=== PATIENT | female | born 1950 | race Caucasian/White ===

== ENCOUNTER → 2020-01-17 13:10 | Outpatient (CLI) | payer MEDICARE, SELFPAY ==
--- NOTE | ~2020-01-17 | DEXA_ITS ---
Bone Density Report Name: Desiree Hanna Age: 69 Sex: Female Ethnicity: White Date of : 1950 Indication: postmenopausal; screening for osteoporosis; hysterectomy; Referring Provider: Lin Carlos Study: Bone densitometry was performed. Exam Date: January 17, 2020 Accession number: [id number] Bone Density: Region BMD T-score Z-score Classification AP Spine (L1-L4) 0.908 -1.3 0.7 Osteopenia Femoral Neck (Left) 0.764 -0.8 0.9 Normal Total Hip (Left) 0.809 -1.1 0.3 Osteopenia Femoral Neck (Right) 0.795 -0.5 1.2 Normal Total Hip (Right) 0.879 -0.5 0.9 Normal Total Hip Mean 0.844 -0.8 0.6 Normal World Health Organization criteria for BMD impression classify patients as: Normal (T-score at or above -1.0), Osteopenia (T-score between -1.0 and -2.5), or Osteoporosis (T-score at or below -2.5). 10-year Fracture Risk(1): Major Osteoporotic Fracture 8.1% Hip Fracture 0.6% Reported Risk Factors: [place] (), Neck BMD=0.764, BMI=28.5 (1) FRAX(R) Version 3.08. Fracture probability calculated for an untreated patient. Fracture probability may be lower if the patient has received treatment. Previous Exams: Region Exam Age BMD T-score BMD Change BMD Change Date g/cm2 vs Baseline vs Previous AP Spine(L1-L4) 01/17/2020 69 0.908 -1.3 -0.075* -0.075* 07/20/2005 54 0.983 -0.6 Total Hip(Left) 01/17/2020 69 0.809 -1.1 -0.187* -0.187* 07/20/2005 54 0.997 0.4 Total Hip(Right) 01/17/2020 69 0.879 -0.5 -0.089* -0.089* 07/20/2005 54 0.968 0.2 *Denotes significance at 95% confidence level, LSC for AP Spine = 0.022 g/cm2, LSC for Total Hip = 0.027 g/cm2 Clinical Information Provided by Patient: Has used the following medications: Vitamin D, Calcium, LEVOTHYROXIN Has the following medical conditions: Hysterectomy Patient maximum height was 62.5 Menopause Age: 44 No regular weight bearing exercise Does not regularly consume dairy products Drinks caffeinated beverages Onset of menses at age 15 Number of children 2 Impression: The patient has low bone mass, based on the Total Spine T-score. The patient has an estimated ten-year risk of hip fracture of 0.6% and an estimated ten-year risk of major fracture of 8.1%, based on the WHO FRAX algorithm. The BMD for the AP Spine(L1-L4) decreased, changing by -0.075 since the last DXA exam. The BMD for the Total Hip(Left) decreased,
--- NOTE | ~2020-01-17 | MM_ITS ---
EXAMINATION: MM screening [facility] BI w [place] HISTORY: Screening mammogram TECHNIQUE: Craniocaudal and mediolateral oblique 3-D tomosynthesis images were obtained and synthetic 2-D images were generated. CAD analysis was submitted and interpreted. COMPARISON: 12/08/2017, 10/16/2011, 08/17/2008 BREAST PARENCHYMAL COMPOSITION: There are scattered areas of fibroglandular density. FINDINGS: There is no evidence of suspicious mass, calcification, or architectural distortion to sugg est malignancy in either breast. There has been no suspicious interval change. IMPRESSION: 1. No mammographic evidence of malignancy. 2. Recommend routine screening mammography in one year. BI-RADS Category 1: Negative Reviewed, dictated and finalized at location A. TRIMMER
== END ==
PROVIDERS: PCP Family Medicine; Visit Provider Nurse Practitioner
DX: Z12.31 Encounter for screening mammogram for malignant neoplasm of breast (principal); Z78.0 Asymptomatic menopausal state; M85.88 Other specified disorders of bone density and structure, other site; M85.852 Other specified disorders of bone density and structure, left thigh
CPT/HCPCS: 77063; 77067; 77080

== ENCOUNTER → 2021-12-10 11:33 | Outpatient (CLI) | payer MEDICARE, SELFPAY ==
--- NOTE | ~2021-12-10 | MM_ITS ---
EXAMINATION: MM screening [facility] BI w [place] HISTORY: Screening mammogram TECHNIQUE: Craniocaudal and mediolateral oblique 3-D tomosynthesis images were obtained and synthetic 2-D images were generated. CAD analysis was submitted and interpreted. COMPARISON: 01/17/2020, 12/08/2017, 10/16/2011 BREAST PARENCHYMAL COMPOSITION: The breasts are heterogeneously dense, which may obscure small masses . FINDINGS: No suspicious mass, calcification, or architectural distortion are identified in either sabino ast to suggest malignancy. There has been no suspicious interval change. IMPRESSION: 1. No mammographic evidence of malignancy. 2. Recommend routine screening mammography in one year. BI-RADS Category 1: Negative Reviewed, dictated and finalized at location B.
== END ==
PROVIDERS: PCP Family Medicine; Visit Provider Family Medicine
DX: Z12.31 Encounter for screening mammogram for malignant neoplasm of breast (principal)
CPT/HCPCS: 77063; 77067

== ENCOUNTER → 2021-12-30 14:07 | Outpatient (CLI) | payer MEDICARE, SELFPAY ==
--- NOTE | ~2021-12-30 | XR_ITS ---
XR chest 2V 12/30/2021 14:23 Indication: Fever and cough Procedure: 2 view chest Comparison: 10/12/2011 Findings: Heart size normal. There is subsegmental atelectasis of the left mid and lower lung. Cannot exclude developing pneumonia. No pleural effusion or pneumothorax. Right lung clear. Impression: 1: Linear infiltrates of the left mid and lower lung, most likely atelectasis. Developing pneumonia n ot excluded. Reviewed, dictated and finalized at location B. Impression: 1: Linear infiltrates of the left mid and lower lung, most likely atelectasis. Developing pneumonia not excluded.
== END ==
PROVIDERS: PCP Family Medicine; Visit Provider Nurse Practitioner
DX: R05.9 Cough, unspecified (principal); R50.9 Fever, unspecified; R91.8 Other nonspecific abnormal finding of lung field
CPT/HCPCS: 71046

== ENCOUNTER 2022-01-14 12:41 | Inpatient (IN) | payer MEDICARE, SELFPAY ==
--- NOTE | ~2022-01-14 | CT_ITS ---
EXAMINATION: CT chest abdomen pelvis w con DATE: 01/14/2022 14:42 INDICATION: Cough. Right lower quadrant abdominal pain. Fever. TECHNIQUE: Computed tomography (CT) of the chest, abdomen, and pelvis was performed with 100 mL Omnip aque 350 intravenous contrast. Automated exposure control and iterative reconstruction technique were employed. The dose-length product was 806.67 mGy-cm. COMPARISON: Chest 2 views 12/30/2021 FINDINGS: CHEST CT: The lungs demonstrate mild atelectasis. No pleural effusion. The heart size is normal. No pericardial effusion. There is a small sliding hiatal hernia. There is mild thoracic spondylosis. There is a chr onic compression fracture of T8. ABDOMEN/PELVIS CT: The liver, gallbladder, spleen, pancreas, adrenal glands, and kidneys are normal. There are scattered diverticula in the colon. There is wall thickening of the sigmoid colon with surrounding fat strandi ng and 3.5 x 2.8 x 2.7 cm perisigmoid abscess. There are no dilated loops of bowel. The appendix is n ot visualized. There is a small volume of pelvic ascites. There are no pathologically enlarged lymph nodes. There is mild lumbar spondylosis. IMPRESSION: 1. Acute sigmoid diverticulitis with perisigmoid abscess. Consider CT-guided drainage. 2. Small volume of pelvic ascites. Reviewed, dictated and finalized at location A. ER PUNCH IMPRESSION: 1. Acute sigmoid diverticulitis with perisigmoid abscess. Consider CT-guided dr chau. 2. Small volume of pelvic ascites.
--- NOTE | ~2022-01-14 | CT_ITS ---
EXAMINATION: CT guide absc cath placement DATE: 01/15/2022 13:45 INDICATION: Perisigmoid abscess. TECHNIQUE: The procedure including the risks, benefits, and alternatives was discussed with the patie nt. Risks discussed included bleeding and infection. The patient understood the risks and benefits an d agreed to proceed. The patient was confirmed to be receiving appropriate antibiotic coverage. The skin overlying the abdomen was prepped and draped in usual sterile fashion. Anesthetic was administe red with 1% lidocaine subcutaneously. Moderate sedation was achieved with 1 mg Versed IV and 100 mcg fentanyl IV. An 18 gauge trochar needle was inserted into the perisigmoid abscess with CT guidance. T he needle was exchanged over a wire for 6 Portuguese, 8 Portuguese, and 9 Portuguese dilators and then for an 8.5 Portuguese pigtail catheter. The catheter was stitched to the skin, and a sterile dressing was applied. The mA was adjusted according to patient size. Iterative reconstruction technique was employed. The d ose-length product was 260.82 mGy-cm. There were no immediate complications. FINDINGS: CT images demonstrate the catheter within the perisigmoid abscess. 4 mL fluid was aspirated for testing. IMPRESSION: 1. Successful CT-guided perisigmoid abscess drainage. 2. 4 mL opaque, red-gann fluid was sent for aerobic and anaerobic cultures. Reviewed, dictated and finalized at location A. RACT ASSOCIATE
[2022-01-14 12:45] VITALS: BP 97/84; PULSE 115; RESP 20; TEMP 38.7; O2SAT 96
[2022-01-14 13:02] VITALS: BP 128/78; PULSE 112; RESP 19; O2SAT 96
[2022-01-14 13:44] LABS: Basophils Absolute Auto 0.1 K/mm3 (0.0-0.1); Basophils Percent Auto 0.3 % (0.2-1.2); Eosinophils Percent Auto 0.2 % (0-4.4); Hematocrit 37.4 % (37.0-47.0); Hemoglobin 12.6 g/dL (12.0-15.0); Immature Granulocyte Absolute 0.11 K/mm3 (0.00-0.031); Immature Granulocyte Percent A 0.6 % (0-0.5); Lymphocytes Absolute Auto 1.28 K/mm3 (0.9-3.2); Lymphocytes Percent Auto 7.3 % (18.3-44.2); Mean Corpuscular HGB Conc 33.7 g/dl (32-36); Mean Corpuscular Hemoglobin 29.5 pg (26-34); Mean Corpuscular Volume 87.6 fl (80-100); Monocytes Absolute Auto 1.8 K/mm3 (0.1-0.6); Neutrophils Absolute Auto 14.3 K/mm3 (1.3-6.7); Neutrophils Percent Auto 81.6 % (45.5-73.1); Platelet Count Result 450 k/mm3 (150-375); Red Blood Count 4.27 M/mm3 (4.2-5.4); White Blood Count 17.5 K/mm3 (4.5-10.0)
[2022-01-14] MEDS: SODIUM CHLORIDE 0.9% IV 1,000 ML 999 ML IV CONT (13:51)
[2022-01-14 13:57] LABS: Appearance Urine Clear (Clear); Bilirubin Urine Negative (Negative); Blood Urine Negative (Negative); Color Urine Dark Yellow (Yellow); Glucose Urine UA Negative (Negative); Ketones Urine 1+ mg/dL (Negative); Leukocyte Esterase Ur Negative LEU/UL (Negative); Nitrate Urine Negative (Negative); Protein Urine Negative (Negative); Urobilinogen Urine 0.2 mg/dL (<2.0)
[2022-01-14 14:00] VITALS: PULSE 98; RESP 17; O2SAT 94
[2022-01-14 14:02] LABS: Alanine Aminotransferase 26 U/L (6-35); Alkaline Phosphatase 95 U/L (38-126); Anion Gap 10 mmol/L (8-16); Aspartate Amino Transferase 27 U/L (14-36); Bilirubin,Total 0.7 mg/dL (0.2-1.3); Blood Urea Nitrogen 14 mg/dL (7-17); Calcium 8.8 mg/dL (8.4-10.2); Carbon Dioxide 25 mmol/L (22-30); Chloride 99 mmol/L (98-107); Estimated CRCL calculation 49 ml/min; Estimated Glomerular Filt Rate > 60; Glucose 121 mg/dL (65-110); Lipase 34 U/L (23-300); Potassium 3.7 mmol/L (3.4-5.0); Sodium 134 mmol/L (137-145)
[2022-01-14 14:04] LABS: Squamous Epithelial Cell Urine Occasional /hpf (Few); WBC Urine 0-3 /hpf
[2022-01-14 14:18] LABS: Add Urine Microscopic? YES
--- NOTE | 2022-01-14 14:54 | ED.FEVER ---
HPI - Fever General Chief Complaint: Fever Stated Complaint: FEVER/RECENT PNEUMONIA Time Seen by Provider: 01/14/22 13:10 History of Present Illness HPI Narrative: Patient is a 71-year-old female who presents ER with persistent fever. On 12/20/2021 she was diagnosed with influenza. After a week to 10 days she continued have fevers. Her doctor felt she might have a pneumonia given a borderline chest x-ray. She was started on Augmentin however fevers and cough persisted so she was started on Levaquin. Fever still persist today so she was told to go to the ER for CT of her chest. Patient is also reporting that she has developed some lower abdominal pain for the last couple of days. No diarrhea. No nausea or vomiting. No urinary frequency urgency or dysuria. Pain is worse with palpation and movement. Related Data Home Medications Medication Instructions Recorded Confirmed cholecalciferol (vitamin D3) 25 25 mcg PO DAILY 11/13/19 12/28/21 mcg (1,000 unit) capsule ferrous sulfate 325 mg (65 mg 325 mg PO DAILY 11/13/19 12/28/21 iron) tablet calcium carbonate 600 mg calcium 600 mg PO TID 09/28/21 12/28/21 (1,500 mg) tablet (Calcium) coenzyme Q10 50 mg capsule (Co 50 mg PO DAILY 09/28/21 12/28/21 Q-10) niacin 50 mg tablet 50 mg PO DAILY 09/28/21 12/28/21 vitamin B complex 1 tablet PO DAILY 09/28/21 12/28/21 Allergies Allergy/AdvReac Type Severity Reaction Status Date / Time erythromycin base Allergy Unknown Vomiting Verified 01/14/22 13:03 Review of Systems Review of Systems: All systems reviewed & are unremarkable except as noted in HPI and below Constitutional: Constitutional: Denies chills, Reports fatigue and Reports fever(s) ENT: Denies nasal congestion and Denies sore throat Cardiovascular: Cardiovascular: Denies chest pain, Denies rapid heart rate and Denies radiating jaw, neck or arm pain Respiratory: Respiratory: Reports cough, Denies dyspnea and Denies wheezing Gastrointestinal: Gastrointestinal: Reports abdominal pain, Denies nausea and Denies vomiting Neurologic: Denies headache(s), Denies focal weakness and Denies numbness PMFSH Past Medical History Medical History Dyslipidemia Hypothyroidism Melanoma (~1993) left leg calf Nose fracture Numerous skin moles Osteomyelitis (~1965) Osteopenia Surgical History Surgical History H/O abdominoplasty (~2011) History of carpal tunnel surgery (~1995) Right History of hysterectomy (~1994) History of melanoma excision (~1995) Right lower extremity Hx of section (~1981) Family History Family History Sibling Patient's brother is in good health Mother Family history of arthritis Family history of glaucoma Father Family history of amyotrophic lateral sclerosis, Onset Age: 86 Patient's father is Family history of dementia Other Diabetes mellitus Family history of malignant neoplasm of bone Family history of throat cancer Hypertension Social History Social History Smoking status: Never smoker Second hand tobacco smoke exposure: No Alcohol intake: current Alcohol use details: consumes 4oz of wine rarely Substance use: never Substance use type: does not use Additional living arrangements comments: and mother Gender identity (if verbalized by the patient): Female Sexual Orientation (if Verbalized by the Patient): Straight or Heterosexual Spiritual care concerns: No Exam Narrative: GENERAL: Well-appearing, well-nourished, and in no acute distress. HEAD: Normocephalic, atraumatic. EYES: PERRL and EOMI. ENT: Mucous membranes moist. CHEST: Clear to auscultation. No respiratory distress. HEART: Regular rate and rhythm. Normal peripheral pulses. ABDOMEN: Soft, b
--- NOTE | 2022-01-14 15:39 | PM.IMHP ---
H&P: HPI History of Present Illness Date/Time: 01/14/22 15:39 Chief Complaint: Fever Narrative: This is a 71-year-old woman with a history of hyperlipidemia and hypothyroidism, who presented to the emergency department with complaints of a fever. She tested positive for influenza B in mid December. She felt she was not ?getting over it? and was getting worse, therefore she followed up with her PCP. He ordered a chest x-ray on 12/30/2021 that showed linear infiltrates of the left mid and lower lung. She was started on Augmentin. After 6 days, she was reportedly switched to Levaquin as she was not having much improvement. She recently finished Levaquin last Tuesday. She was then afebrile for the past 3 days. Last night, she reports having a temperature of a 100.3? F. Due to her fever, she called her PCP this morning who directed her to the ER for evaluation. In the ER with further questioning after having abdominal tenderness on exam, she did endorse having lower abdominal pain that has been ongoing for the past month. She reports the pain has been mild and is aggravated by coughing or movement. This pain has remained consistent and did not seem to worsen recently. She initially felt it was related to constipation and was taking Colace. Her bowels began moving again normally and her pain remain the same. She reports having a continuous low-grade fever since testing positive for influenza up until 3 days ago. Due to the tenderness, she had a CT scan of the chest, abdomen, and pelvis in the ER. This showed acute sigmoid diverticulitis with perisigmoid abscess and small volume of pelvic ascites. [place] [id number] and lactic acid is pending. The ED physician called our service for the acute diverticulitis with perisigmoid abscess. She is now seen in the ER. She denies any pain at this time, and reports that currently her pain is only with movement and coughing. She does feel tender in the lower abdomen. She denies any history of diverticulitis. She reportedly had a normal colonoscopy about 10 years ago and was scheduled to have a colonoscopy next month. Previous abdominal surgeries include a total abdominal hysterectomy, delivery, and abdominoplasty. She does endorse that she still has a cough, but no shortness of breath. She is not hypoxic in the ER and is on room air. Overall, she actually feels her abdominal pain and symptoms have improved in the last 24 hours, other than the fever. COVID and influenza testing are pending. Review of Systems Review of Systems: All systems reviewed & are unremarkable except as noted in HPI and below Constitutional: Constitutional: Reports no additional constitutional complaints, Reports fever(s), Denies headache(s) and Denies poor appetite Eyes: Eyes: Reports no additional eye complaints ENT: Reports system reviewed and no additional complaints, except as documented Cardiovascular: Cardiovascular: Reports no additional cardiovascular complaints and Denies chest pain Respiratory: Respiratory: Reports as per HPI and Reports no additional respiratory complaints Gastrointestinal: Gastrointestinal: Reports as per HPI, Reports no additional gastrointestinal complaints, Denies melena, Denies hematochezia, Reports constipation, Denies diarrhea, Denies nausea and Denies vomiting Genitourinary: Genitourinary: Reports no additional female genitourinary complaints and Denies dysuria Musculoskeletal: Musculoskeletal: Reports no additional musculoskeletal complaints Integumentary/Breasts: Skin/Breast: Reports system reviewed and no additional complaints, except as docu Neurologic: Reports system reviewed and no additional complaints, except as documented [facility] Past Medical History Medical History Dyslipidemia Hypothyroidism Melanoma (~1993) left leg calf Nose fracture Numerous skin moles Osteomyelitis (~1
[2022-01-14 15:52] LABS: Lactic Acid Reflex 0.6 mmol/L (0.7-2.0)
[2022-01-14 16:07] LABS: INR 1.1; Prothrombin Time 14.2 Seconds (11.1-14.7)
[2022-01-14 16:08] LABS: Partial Thromboplastin Time 33.2 SECONDS (22.3-36.8)
[2022-01-14 16:19] VITALS: BP 136/72; PULSE 85; RESP 17; TEMP 37.1; O2SAT 96
[2022-01-14 16:49] LABS: Influenza A QL RT-PCR Negative (Negative); Influenza B QL RT-PCR Negative (Negative); SARS-CoV-2 RNA PCR Negative
[2022-01-14] MEDS: SODIUM CHLORIDE 0.9% IV 1,000 ML 125 ML IV CONT (17:29)
--- NOTE | 2022-01-14 18:50 | ADMGEN ---
This patient, Desiree Hanna, was admitted to Medical Room 342-01. Patient/family oriented to hospital policies and general routines including ID bracelet, bed and alarms, visiting hours, pain management, procedures, bathroom and other care routines, personal items, smoking policy, room service/diet, and visiting hours. Information on how to activate the Rapid Response Team has been discussed. Patient/Family are encouraged to report perceived risks to care and to ask questions if they do not understand what they are told or what they should do.
--- NOTE | 2022-01-14 20:11 | PC.NURSE ---
CARE PLAN, ADMISSION, ASSESSMENT AND MEDICATION RECONCILIATION DONE AT THIS TIME.
[2022-01-14 20:38] VITALS: BP 138/71; PULSE 89; RESP 18; TEMP 36.9; O2SAT 100; BMI 34.0
--- NOTE | 2022-01-14 21:24 | PC.NURSE ---
PATIENT STATES THAT SHE TAKES SEVERAL OTC MEDICATIONS(I.E. VITAMIN/SUPPLEMENTS). WHILE INQUIRING ABOUT THEM, SHE INFORMED ME THAT SHE WAS OKAY NOT RECEIVING THOSE MEDICATIONS DURING HOSPITALIZATION.
[2022-01-14] MEDS: guaiFENesin/CODEINE (*CRX) 200/20 MG 10 ML SYRUP 5 ML PO (21:51)
[2022-01-15] VITALS (12 sets, daily range): BP systolic 110–129; BP diastolic 56–77; PULSE 76–103; RESP 15–20; TEMP 36.8–37; O2SAT 92–98
[2022-01-15] MEDS: MORPHINE SULFATE (*CRX) 4 MG/ML INJ IV PUSH ×3 (00:16→11:22)
[2022-01-15] MEDS: SODIUM CHLORIDE 0.9% IV 1,000 ML 125 ML IV CONT ×2 (02:11→11:20)
[2022-01-15 06:06] LABS: Anion Gap 10 mmol/L (8-16); Blood Urea Nitrogen 9 mg/dL (7-17); Calcium 7.8 mg/dL (8.4-10.2); Carbon Dioxide 24 mmol/L (22-30); Chloride 102 mmol/L (98-107); Estimated CRCL calculation 51 ml/min; Estimated Glomerular Filt Rate > 60; Glucose 111 mg/dL (65-110); Potassium 3.3 mmol/L (3.4-5.0); Sodium 136 mmol/L (137-145)
[2022-01-15 06:18] LABS: Basophils Percent Auto 0.2 % (0.2-1.2); Eosinophils Percent Auto 0.1 % (0-4.4); Hematocrit 31.1 % (37.0-47.0); Hemoglobin 10.5 g/dL (12.0-15.0); Immature Granulocyte Absolute 0.09 K/mm3 (0.00-0.031); Immature Granulocyte Percent A 0.5 % (0-0.5); Lymphocytes Percent Auto 5.9 % (18.3-44.2); Mean Corpuscular HGB Conc 33.8 g/dl (32-36); Mean Corpuscular Hemoglobin 29.6 pg (26-34); Mean Corpuscular Volume 87.6 fl (80-100); Mean Platelet Volume 9.2 fl (7.4-10.4); Monocytes Absolute Auto 1.3 K/mm3 (0.1-0.6); Monocytes Percent Auto 7.8 % (2.6-8.5); Neutrophils Absolute Auto 14.6 K/mm3 (1.3-6.7); Neutrophils Percent Auto 85.5 % (45.5-73.1); Platelet Count Result 346 k/mm3 (150-375); Red Blood Count 3.55 M/mm3 (4.2-5.4); White Blood Count 17.1 K/mm3 (4.5-10.0)
[2022-01-15] MEDS: LEVOTHYROXINE SODIUM 88 MCG TABLET PO (06:53)
[2022-01-15] MEDS: PANTOPRAZOLE 40 MG TABLET PO (08:55)
[2022-01-15] MEDS: guaiFENesin/CODEINE (*CRX) 200/20 MG 10 ML SYRUP 5 ML PO (09:04)
--- NOTE | 2022-01-15 11:33 | PM.PNGS ---
Progress Note: A&P Assessment and Plan (1) Diverticulitis of intestine with abscess: Code(s): K57.80 - Diverticulitis of intestine, part unspecified, with perforation and abscess without bleeding Status: Acute Assessment and Plan: cont IV abx, plan for perc drainage today (2) Sepsis: Code(s): A41.9 - Sepsis, unspecified organism Status: Acute Assessment and Plan: see above Subjective Subjective Date/Time Seen: 01/15/22 11:33 feels ok, still c LLQ pain Review of Systems Review of Systems: All systems reviewed & are unremarkable except as noted in HPI and below Exam Const: General: cooperative, acute distress mild, tired appearing, uncomfortable and obese Resp: Auscultation: clear to auscultation bilaterally Cardio: Rate: regular rate Rhythm: regular rhythm GI: Inspection: normal to inspection and distended GI Palp: Yes abdominal tenderness, Yes Soft to palpation, Yes Tenderness to palpation present (GI), No Guarding due to palpation present (GI) and No Rigid due to palpation Objective Data Vital Signs Vital Signs: Vital Signs - 24 hr 01/14/22 12:45 01/14/22 13:02 01/14/22 14:00 Temperature 38.7 C H Pulse Rate 115 H 112 H 98 Respiratory Rate 20 19 17 Blood Pressure 97/84 L 128/78 Pulse Oximetry 96 96 94 Oxygen Delivery 01/14/22 16:19 01/14/22 20:38 01/14/22 21:30 Temperature 37.1 C 36.9 C Pulse Rate 85 89 Respiratory Rate 17 18 Blood Pressure 136/72 138/71 Pulse Oximetry 96 100 Oxygen Delivery Room Air 01/15/22 04:03 01/15/22 08:30 Temperature 36.8 C Pulse Rate 103 H Respiratory Rate 18 Blood Pressure 117/56 L Pulse Oximetry 92 Oxygen Delivery Room Air Intake/Output Intake/Output: Intake & Output 01/12/22 01/13/22 01/14/22 01/15/22 23:59 23:59 23:59 23:59 Intake Total 1200 2100 Output Total 700 Balance 1200 1400 Meds/Results Medications: Active Medications Generic Name Dose Route Start Last Admin Trade Name Freq PRN Reason Stop Dose Admin Benzocaine 1 lozenge 01/15/22 11:12 Benzocaine/Menthol (*Bkc) 18 Ea Lozenge PO PRN PRN Sore Throat Diphenhydramine HCl 25 mg 01/15/22 11:11 Diphenhydramine Hcl Cap 25 Mg Capsule PO Q6H PRN Itching Guaifenesin/Codeine Phosphate 5 ml 01/14/22 21:17 01/15/22 09:04 Guaifenesin/Codeine (*Crx) 200/20 Mg 10 Ml Syrup PO 5 ml Q6H PRN Administration cough Piperacillin/Tazobactam/Dextrose 3.375 gm in 50 mls @ 100 mls/hr 01/14/22 21:00 01/15/22 09:25 Zosyn 3.375 Gm/D5w 50ml Pm IVPB Infused Q6H MILLA Infusion Acetaminophen 1,000 mg in 100 mls @ 400 mls/hr 01/14/22 15:08 Ofirmev 1,000 Mg Ivpb IVPB 01/15/22 15:07 Q6H PRN Mild Pain (1-3) or Fever Sodium Chloride 1,000 mls @ 125 mls/hr 01/14/22 15:10 01/15/22 11:20 Normal Saline Iv IV CONT 125 mls/hr .Q8H MILLA Administration Levothyroxine Sodium 88 mcg 01/15/22 06:30 01/15/22 06:53 Levothyroxine Sodium 88 Mcg Tablet PO 88 mcg DAILY@0630 MILLA Administration Morphine Sulfate 4 mg 01/14/22 15:08 01/15/22 11:22 Morphine Sulfate (*Crx) 4 Mg/Ml Inj IV PUSH 4 mg Q2H PRN Administration Pain Rated 7-10 Ondansetron HCl 4 mg 01/14/22 15:08 Ondansetron Inj 4 Mg/2 Ml Vial IV PUSH Q4H PRN Nausea Pantoprazole Sodium 40 mg 01/15/22 09:00 01/15/22 08:55 Pantoprazole 40 Mg Tablet PO 02/14/22 08:59 40 mg DAILY MILLA Administration Radiology Results: ITS Impressions Chest/Abdomen/Pelvis CT 01/14/22 14:43 IMPRESSION: 1. Acute sigmoid diverticulitis with perisigmoid abscess. Consider CT-guided drainage. 2. Small volume of pelvic ascites. Labs Labs: Laboratory Results - last 24 hr 11/10/22 11/10/22 11/10/22 13:37 13:38 13:38 WBC 17.5 H RBC 4.27 Hgb 12.6 Hct 37.4 MCV 87.6 MCH 29.5 MCHC 33.7 RDW 13.0 Plt Count 450 H MPV 9.0 Immature Gran % (Auto) 0.6 H
[2022-01-15] MEDS: diphenhydrAMINE HCl CAP 25 MG CAPSULE PO (12:18)
[2022-01-15] MEDS: BENZOCAINE/MENTHOL (*BKC) 18 EA LOZENGE 1 LOZENGE PO (12:18)
--- NOTE | 2022-01-15 13:03 | WPDMODSED ---
Moderate Sedation Note-Pt Data Patient Data Diagnosis: Perisigmoid abscess. Present Complaint: Perisigmoid abscess. Procedure to be performed/Plan: CT-guided perisigmoid abscess drainage. Allergies Allergy/AdvReac Type Severity Reaction Status Date / Time erythromycin base Allergy Unknown Vomiting Verified 01/14/22 20:58 Home Medications Medication Instructions Recorded Confirmed Type levothyroxine 88 mcg tablet 88 mcg PO DAILY #90 tabs 09/28/21 01/14/22 Rx omeprazole 20 mg capsule,delayed 20 mg PO DAILY #90 caps 09/28/21 01/14/22 Rx release codeine 10 mg-guaifenesin 100 mg/5 5 ml PO Q6H PRN cough #120 mL 01/05/22 01/14/22 Rx mL oral liquid Current Medications: Active Medications Benzocaine (Benzocaine/Menthol (*Bkc) 18 Ea Lozenge) 1 lozenge PO PRN PRN PRN Reason: Sore Throat Last Admin: 01/15/22 12:18 Dose: 1 lozenge Diphenhydramine HCl (Diphenhydramine Hcl Cap 25 Mg Capsule) 25 mg PO Q6H PRN PRN Reason: Itching Last Admin: 01/15/22 12:18 Dose: 25 mg Guaifenesin/Codeine Phosphate (Guaifenesin/Codeine (*Crx) 200/20 Mg 10 Ml Syrup) 5 ml PO Q6H PRN PRN Reason: cough Last Admin: 01/15/22 09:04 Dose: 5 ml Piperacillin/Tazobactam/Dextrose (Zosyn 3.375 Gm/D5w 50ml Pm) 3.375 gm in 50 mls @ 100 mls/hr IVPB Q6H [facility] Last Infusion: 01/15/22 09:25 Dose: Infused Acetaminophen (Ofirmev 1,000 Mg Ivpb) 1,000 mg in 100 mls @ 400 mls/hr IVPB Q6H PRN PRN Reason: Mild Pain (1-3) or Fever Stop: 01/15/22 15:07 Sodium Chloride (Normal Saline Iv) 1,000 mls @ 125 mls/hr IV CONT .Q8H MILLA Last Admin: 01/15/22 11:20 Dose: 125 mls/hr Levothyroxine Sodium (Levothyroxine Sodium 88 Mcg Tablet) 88 mcg PO DAILY@0630 [facility] Last Admin: 01/15/22 06:53 Dose: 88 mcg Morphine Sulfate (Morphine Sulfate (*Crx) 4 Mg/Ml Inj) 4 mg IV PUSH Q2H PRN PRN Reason: Pain Rated 7-10 Last Admin: 01/15/22 11:22 Dose: 4 mg Ondansetron HCl (Ondansetron Inj 4 Mg/2 Ml Vial) 4 mg IV PUSH Q4H PRN PRN Reason: Nausea Pantoprazole Sodium (Pantoprazole 40 Mg Tablet) 40 mg PO DAILY [facility] Stop: 02/14/22 08:59 Last Admin: 01/15/22 08:55 Dose: 40 mg Sedation/Anesthesia: No previous sedation/anesthesia problems (including family history). [facility] Past Medical History Medical History Dyslipidemia Hypothyroidism Melanoma (~1993) left leg calf Nose fracture Numerous skin moles Osteomyelitis (~1965) Osteopenia Surgical History Surgical History H/O abdominoplasty (~2011) History of carpal tunnel surgery (~1995) Right History of hysterectomy (~1994) History of melanoma excision (~1995) Right lower extremity Hx of section (~1981) Family History Family History Sibling Patient's brother is in good health Mother Family history of arthritis Family history of glaucoma Father Family history of amyotrophic lateral sclerosis, Onset Age: 86 Patient's father is Family history of dementia Other Diabetes mellitus Family history of malignant neoplasm of bone Family history of throat cancer Hypertension Social History Social History Smoking status: Never smoker Second hand tobacco smoke exposure: No Alcohol intake: current Drinks per week: 1 Alcohol use details: consumes 4oz of wine rarely Substance use: never Substance use type: does not use Lack of Transportation: No Lack of Food: Never True Current Housing: I Have Housing Concerned About Future Housing: No Difficulty Paying Gas/Electric Bills: No Difficulty Paying for Meds: No Currently Unemployed: No Education: Decline to Answer Difficulty w/ Childcare or Family Care: No Additional living arrangements comments: and mother Gender identity (if verbalized by the patient): F
--- NOTE | 2022-01-15 16:22 | SUR.OPER ---
Note for Moderate Sedation for Drain Placement by Dr. Back Pt in room at 1305 Time out including pt name, date of , allergy to erythromycins, procedure to be performed - drain placement with Dr. Back at 1322 Case start at 1323 Case stop at 1342 Pt out of room at 1401 Report called to SYLVIA Miller primary nurse
[2022-01-16] MEDS: SODIUM CHLORIDE 0.9% IV 1,000 ML 125 ML IV CONT ×2 (00:38→11:34)
[2022-01-16 05:14] VITALS: BP 116/56; PULSE 83; RESP 18; TEMP 36.9; O2SAT 97
[2022-01-16] MEDS: LEVOTHYROXINE SODIUM 88 MCG TABLET PO (06:54)
[2022-01-16] MEDS: PANTOPRAZOLE 40 MG TABLET PO (08:37)
[2022-01-16] MEDS: POTASSIUM CHLORIDE 20 MEQ TABLET.ER PO ×2 (11:38→18:15)
[2022-01-16 14:00] VITALS: BP 149/78; PULSE 89; RESP 18; TEMP 37.6; O2SAT 97
[2022-01-16] MEDS: ACETAMINOPHEN 500 MG TABLET 1000 MG PO (14:55)
--- NOTE | 2022-01-16 16:08 | PM.PNGS ---
Progress Note: A&P Assessment and Plan (1) Diverticulitis of large intestine with abscess: Code(s): K57.20 - Diverticulitis of large intestine with perforation and abscess without bleeding Status: Acute Assessment and Plan: This is the main reason for the patient's admission. She tolerated the percutaneous drain placement well. No labs done today will repeat CBC and BMP in a.m.. Patient is running a slight fever now so will add Tylenol and [place] 5/325 for 4-6 pain if she needs it. Have encouraged patient to increase walking. She has not had a bowel movement so will order a duplex and also 1 dose of MiraLax. Patient is slightly bloated but is tolerating the low-fiber diet okay. since it was suspected she recently had pneumonia by outpatient chest x-ray will start incentive spirometer. (2) Hypothyroidism: Code(s): E03.9 - Hypothyroidism, unspecified Status: Chronic Assessment and Plan: Oral replacement reordered and she is getting it. (3) Dyslipidemia: Code(s): E78.5 - Hyperlipidemia, unspecified Status: Acute Assessment and Plan: continue current med (4) GERD (gastroesophageal reflux disease): Code(s): K21.9 - Gastro-esophageal reflux disease without esophagitis Status: Acute Assessment and Plan: continue omeprazolel or Protonix for this (5) Hypokalemia: Code(s): E87.6 - Hypokalemia Status: Acute Assessment and Plan: have ordered oral replacement and will recheck in a.m.. Subjective Subjective Date/Time Seen: 01/16/22 16:08 Patient reports: still having pain ( across lower abdomen), voiding w/o difficulty, flatus and no bowel movement Interval history: The patient states she was fairly comfortable through the night but then mid day started having some more discomfort in the lower abdomen. She tolerated the percutaneous drain placement fairly well yesterday. Slept okay overnight. Feels slightly bloated but tolerating a low-fiber diet. Review of Systems Review of Systems: All systems reviewed & are unremarkable except as noted in HPI and below Constitutional: Constitutional: Reports as per HPI, Denies chills and Denies fever(s) Cardiovascular: Cardiovascular: Denies chest pain and Denies dyspnea Respiratory: Respiratory: Reports no additional respiratory complaints and Denies dyspnea Gastrointestinal: Gastrointestinal: Reports as per HPI Musculoskeletal: Musculoskeletal: Reports no additional musculoskeletal complaints Neurologic: Denies memory loss Psychiatric: Psychiatric: Denies anxiety and Denies memory loss Exam Const: General: cooperative, alert and awake Orientation/consciousness: patient oriented x3 HENMT: Head: normal to inspection Mouth: Yes moist mucous membranes Eyes: Sclera: sclerae normal Pupils: Equal, round and reactive pupils present Neck: Neck: normal visual inspection and no JVD Chest: Chest palpation & inspection: normal inspection of the chest Resp: Effort & Inspection: normal respiratory effort Auscultation: clear to auscultation bilaterally Cardio: Jugular venous distension: no JVD Rate: regular rate GI: Inspection: distended and obesity GI Palp: Yes abdominal tenderness ( Bilateral lower quadrants), No Guarding due to palpation present (GI) and No Rigid due to palpation Auscultation: normal bowel sounds Other: percutaneous drain exits the right lower quadrant. Rest E red-brown fluid in the drainage bag which was not fully compressed. I agree compressed it and educated patient on how to do this and what to watch for. Neuro: General: patient oriented x3 Cranial nerves: Yes Equal, round and reactive pupils present Objective Data Vital Signs Vital Signs: Vital Signs - 24 hr 01/15/22 19:54 01/15/22 20:00 01/16/22 05:14 Temperature 36.9 C 36.9 C Pulse Rate 76 83 Respiratory Rate 18 18 Blood Pressure 113/57 L 116/56 L Pulse Oximetry 98 97 Oxygen Del
[2022-01-16 17:49] VITALS: O2SAT 97
[2022-01-16 18:14] VITALS: TEMP 37.1
[2022-01-16] MEDS: BISACODYL 10 MG SUPPOSITORY RECTAL (18:15)
[2022-01-16] MEDS: polyethylene glycoL 3350 17 GM POWD.PACK PO (18:15)
[2022-01-16 21:29] VITALS: BP 126/80; PULSE 83; RESP 18; TEMP 37.1; O2SAT 98
[2022-01-16] MEDS: guaiFENesin/CODEINE (*CRX) 200/20 MG 10 ML SYRUP 5 ML PO (21:57)
[2022-01-17 05:23] VITALS: BP 124/54; PULSE 86; RESP 18; O2SAT 97
[2022-01-17] MEDS: LEVOTHYROXINE SODIUM 88 MCG TABLET PO (05:27)
[2022-01-17 06:00] VITALS: TEMP 37.4
[2022-01-17 06:05] LABS: Anion Gap 12 mmol/L (8-16); Blood Urea Nitrogen 9 mg/dL (7-17); Calcium 7.9 mg/dL (8.4-10.2); Carbon Dioxide 24 mmol/L (22-30); Chloride 102 mmol/L (98-107); Estimated CRCL calculation 57 ml/min; Estimated Glomerular Filt Rate > 60; Glucose 119 mg/dL (65-110); Potassium 3.4 mmol/L (3.4-5.0); Sodium 138 mmol/L (137-145)
[2022-01-17 06:36] LABS: Lactic Acid Reflex 1.1 mmol/L (0.7-2.0)
[2022-01-17] MEDS: PANTOPRAZOLE 40 MG TABLET PO (08:21)
[2022-01-17] MEDS: POTASSIUM CHLORIDE 20 MEQ TABLET.ER PO ×2 (08:21→18:32)
[2022-01-17 08:31] VITALS: TEMP 37.2
[2022-01-17 13:20] VITALS: TEMP 37.5
[2022-01-17] MEDS: ACETAMINOPHEN 500 MG TABLET 1000 MG PO (13:20)
[2022-01-17 16:00] VITALS: BP 141/61; PULSE 71; RESP 14; TEMP 37.1; O2SAT 98
--- NOTE | 2022-01-17 19:07 | PM.PNGS ---
Progress Note: A&P Assessment and Plan (1) Diverticulitis of intestine with abscess: Code(s): K57.80 - Diverticulitis of intestine, part unspecified, with perforation and abscess without bleeding Status: Acute Assessment and Plan: patient feels better today but still had fever to 99. Encourage patient to be up out of bed walking more. Also encouraged incentive spirometry. Culture results from percutaneous drain fluid not yet completed. Continue IV antibiotics with Zosyn. (2) Hypothyroidism: Code(s): E03.9 - Hypothyroidism, unspecified Status: Chronic Assessment and Plan: Oral replacement reordered and she is getting it. (3) Dyslipidemia: Code(s): E78.5 - Hyperlipidemia, unspecified Status: Acute Assessment and Plan: continue current med (4) GERD (gastroesophageal reflux disease): Code(s): K21.9 - Gastro-esophageal reflux disease without esophagitis Status: Acute Assessment and Plan: continue omeprazolel or Protonix for this (5) Hypokalemia: Code(s): E87.6 - Hypokalemia Status: Acute Assessment and Plan: have ordered oral replacement, --- improved to 3.4 today Subjective Subjective Date/Time Seen: 01/17/22 15:07 Patient reports: no new complaints and nausea ( but no vomiting therefore ate a little less today) Review of Systems Review of Systems: All systems reviewed & are unremarkable except as noted in HPI and below Constitutional: Constitutional: Reports as per HPI, Denies chills and Denies fever(s) Cardiovascular: Cardiovascular: Denies chest pain and Denies dyspnea Respiratory: Respiratory: Reports no additional respiratory complaints and Denies dyspnea Gastrointestinal: Gastrointestinal: Reports as per HPI Musculoskeletal: Musculoskeletal: Reports no additional musculoskeletal complaints Neurologic: Denies memory loss Psychiatric: Psychiatric: Denies anxiety and Denies memory loss Exam Const: General: cooperative, alert and awake Orientation/consciousness: patient oriented x3 HENMT: Head: normal to inspection Mouth: Yes moist mucous membranes Eyes: Sclera: sclerae normal Pupils: Equal, round and reactive pupils present Neck: Neck: normal visual inspection and no JVD Chest: Chest palpation & inspection: normal inspection of the chest Resp: Effort & Inspection: normal respiratory effort Auscultation: clear to auscultation bilaterally Cardio: Jugular venous distension: no JVD Rate: regular rate GI: Inspection: obesity and other ( Less distended today.) GI Palp: Yes abdominal tenderness ( Bilateral lower quadrants), No Guarding due to palpation present (GI) and No Rigid due to palpation Auscultation: normal bowel sounds Other: percutaneous drain exits the right lower quadrant. Nima red-brown fluid in the drainage bag. I educated patient on how to compress fluid into the drainage bag and what to watch for. there is minimal drainage on the dressing for the drain. Neuro: General: patient oriented x3 Cranial nerves: Yes Equal, round and reactive pupils present Objective Data Vital Signs Vital Signs: Vital Signs - 24 hr 01/16/22 21:29 01/16/22 20:00 01/17/22 05:23 Temperature 37.1 C Pulse Rate 83 86 Respiratory Rate 18 18 Blood Pressure 126/80 124/54 L Pulse Oximetry 98 97 Oxygen Delivery Room Air 01/17/22 06:00 01/17/22 07:50 01/17/22 08:31 Temperature 37.4 C 37.2 C Pulse Rate Respiratory Rate Blood Pressure Pulse Oximetry Oxygen Delivery Room Air 01/17/22 13:20 01/17/22 16:00 Temperature 37.5 C 37.1 C Pulse Rate 71 Respiratory Rate 14 Blood Pressure 141/61 H Pulse Oximetry 98 Oxygen Delivery Intake/Output Intake/Output: Intake & Output 01/14/22 01/15/22 01/16/22 01/17/22 23:59 23:59 23:59 23:59 Intake Total 1200 3260 3830 1220 Output Total 1100 2935 2310 Balance 1200 2160 895 -1090 Meds/Results Medicat
[2022-01-17 21:52] VITALS: BP 138/61; PULSE 20; RESP 20; TEMP 37.2; O2SAT 98
[2022-01-18] MEDS: LEVOTHYROXINE SODIUM 88 MCG TABLET PO (05:20)
[2022-01-18 05:30] VITALS: TEMP 37.7
[2022-01-18] MEDS: ACETAMINOPHEN 500 MG TABLET 1000 MG PO (05:30)
[2022-01-18 05:53] LABS: Basophils Absolute Auto 0.1 K/mm3 (0.0-0.1); Basophils Percent Auto 0.5 % (0.2-1.2); Eosinophils Absolute Auto 0.2 K/mm3 (0-0.3); Eosinophils Percent Auto 2.2 % (0-4.4); Hematocrit 30.9 % (37.0-47.0); Hemoglobin 10.4 g/dL (12.0-15.0); Immature Granulocyte Absolute 0.15 K/mm3 (0.00-0.031); Immature Granulocyte Percent A 1.4 % (0-0.5); Lymphocytes Absolute Auto 1.52 K/mm3 (0.9-3.2); Lymphocytes Percent Auto 14.4 % (18.3-44.2); Mean Corpuscular HGB Conc 33.7 g/dl (32-36); Mean Corpuscular Hemoglobin 28.5 pg (26-34); Mean Corpuscular Volume 84.7 fl (80-100); Mean Platelet Volume 8.6 fl (7.4-10.4); Monocytes Absolute Auto 1.1 K/mm3 (0.1-0.6); Monocytes Percent Auto 10.5 % (2.6-8.5); Neutrophils Absolute Auto 7.5 K/mm3 (1.3-6.7); Platelet Count Result 390 k/mm3 (150-375); Red Blood Count 3.65 M/mm3 (4.2-5.4); Red Cell Distribution Width 12.5 % (11.5-14.5); White Blood Count 10.6 K/mm3 (4.5-10.0)
[2022-01-18 06:00] VITALS: BP 137/66; PULSE 80; RESP 16; TEMP 37.4; O2SAT 98
[2022-01-18] MEDS: POTASSIUM CHLORIDE 20 MEQ TABLET.ER PO (09:01)
[2022-01-18] MEDS: PANTOPRAZOLE 40 MG TABLET PO (09:01)
--- NOTE | 2022-01-18 11:08 | PM.DS ---
DS: Admitting Diagnosis Discharge Date 01/18/22 Admitting Diagnosis Complicated diverticulitis with abscess DS: Discharge Diagnosis Discharge Diagnosis (1) Diverticulitis of intestine with abscess: Code(s): K57.80 - Diverticulitis of intestine, part unspecified, with perforation and abscess without bleeding Status: Acute Assessment and Plan: status post perc drainage, IV antibiotics, patient much improved, will DC home with continued p.o. antibiotics and drain, low-fiber diet, repeat CT in a few days to reassess abscess, follow-up in office after CT scan DS: Summary Hospital Course Reason for hospitalization: complicated diverticulitis with abscess Hospital Course: The patient is 71-year-old female presenting to the emergency department complaining of severe lower abdominal pain. Prep in the emergency department, including imaging was significant for complicated diverticulitis with abscess. The patient was subsequently admitted to the surgical service and started on IV antibiotics. The following morning the patient underwent percutaneous drainage of her intra-abdominal abscess under CT guidance, procedure note for details. The patient tolerated the procedure well and was transferred back to the surgical floor. The patient was started on a clear liquid diet. Over the next few days, her abdominal exam improved and she was able to slowly be advanced to a low-fiber diet. The patient was also having normal bowel function. Her white blood cell count gradually improved to near normal levels at discharge. At this point, she will be discharged home with p.o. antibiotics and continued low-fiber. She also has been educated on drain care. Patient will have a repeat CT scan in a few days to reassess her intra-abdominal abscess after drainage. She will subsequently have a follow-up visit. Time Spent with Patient Time attestation: Total time spent providing and/or coordinating discharge services: Exam Const: General: cooperative, comfortable and no acute distress Resp: Auscultation: clear to auscultation bilaterally Cardio: Rate: regular rate Rhythm: regular rhythm GI: Inspection: normal to inspection and distended GI Palp: Yes abdominal tenderness, Yes Soft to palpation, Yes Tenderness to palpation present (GI), No Guarding due to palpation present (GI) and No Rigid due to palpation DS: Data Data Completed and Pending Labs on day of discharge: Labs from last 24 hours 01/18/22 05:30 WBC 10.6 H RBC 3.65 L Hgb 10.4 L Hct 30.9 L MCV 84.7 MCH 28.5 MCHC 33.7 RDW 12.5 Plt Count 390 H MPV 8.6 Immature Gran % (Auto) 1.4 H Neut % (Auto) 71.0 Lymph % (Auto) 14.4 L [place] % (Auto) 10.5 H Eos % (Auto) 2.2 Baso % (Auto) 0.5 Lymph # (Auto) 1.52 [place] # (Auto) 1.1 H Eos # (Auto) 0.2 Baso # (Auto) 0.1 Abs Immat Gran (auto) 0.15 H Absolute Neuts (auto) 7.5 H Absolute Nucleated RBC 0.0 Nucleated RBC % 0.0 Preliminary micro results at discharge 01/15/22 13:46 Anaerobic Culture - Preliminary Abscess Bacteroides sp, not B fragilis 01/14/22 15:29 Blood Culture - Preliminary Blood 01/14/22 15:29 Blood Culture - Preliminary Blood Discharge Plan Discharge Attending physician on discharge: Faiza Dominguez Discharging Clinician: Faiza Dominguez Anticipated Discharge Date/Time: 01/18/22 11:05 Patient Disposition: Home, Self-Care Activity: unlimited Diet: low fiber Patient Instructions: Antibiotic Form Stand Alone Forms: General Discharge Information Follow-up/Referrals: Faiza Dominguez MD [Physician] - 1 Week (she will be setup for CT prior to office visit) Discharge Medications: New ciprofloxacin HCl [Cipro] 500 mg tablet 500 mg PO Q12H Qty: 14 0RF metronidazole [Flagyl] 375 mg capsule 375 mg PO Q12H Qty: 14 0RF Continued levothyroxine 88 mcg tablet 88 mcg PO DAILY Qty: 90 3RF omeprazole 20 mg capsule,delayed release(
== END 2022-01-18 13:40 | disposition home or self-care (01) | DRG 392 ==
LOC: ANHED 15:58 → ANH3MED 18:05
PROVIDERS: Nurse Practitioner Family; Radiology Diagnostic Radiology; Surgery; Admitting Provider Surgery; Emergency Provider Emergency Medicine; PCP Family Medicine; Visit Provider Surgery
PROC: 0W9G30Z Drainage of Peritoneal Cavity with Drainage Device, Percutaneous Approach (ICD-10-PCS; CPT 75989; principal; 2022-01-15 13:00)
DX: K57.20 Diverticulitis of large intestine with perforation and abscess without bleeding (principal); E03.9 Hypothyroidism, unspecified; E78.5 Hyperlipidemia, unspecified; Z20.822 Contact with and (suspected) exposure to COVID-19; Z79.899 Other long term (current) drug therapy
CPT/HCPCS: 36415; 71260; 74177; 75989; 80048; 80053; 81001; 83605; 83690; 85025; 85610; 85730; 87040; 87070; 87075; 87076; 87205; 87502; 96361; 96365; 96367; 96376; 99285; A9270; C1729; C1769; G0378; J0131; J2270; J2543; J7030; J7040; Q9967; U0003; U0005

== ENCOUNTER 2022-01-22 14:10 | Outpatient (CLI) | payer MEDICARE, SELFPAY ==
--- NOTE | ~2022-01-22 | CT_ITS ---
EXAMINATION: CT abdomen pelvis wo con DATE: 01/22/2022 14:39 INDICATION: Diverticulitis TECHNIQUE: Computed tomography (CT) of the abdomen and pelvis was performed without intravenous contr ast. The dose-length product (DLP) was 544.57 mGy-cm. Automated exposure control and iterative recons truction technique were employed. COMPARISON: 01/14/2022 FINDINGS: Minimal dependent atelectasis is present in the lung bases. The heart size is normal. There is a small sliding hiatal hernia. There is a small pericardial effusion. The liver, spleen, pancreas , gallbladder, and adrenal glands are normal. The kidneys are unremarkable. A percutaneous drain has been placed in the previously described perisigmoid abscess which demonstrates near complete interval resolution of the caudal portion of the abscess. There is a persistent component of the abscess jose g the caudal aspect of the sigmoid colon and abutting the bladder, measuring approximately 3.1 x 3.5 cm (image 135), without significant change. No pathologically enlarged abdominal or pelvic lymph node s are identified. There are no dilated loops of bowel. There is mild lumbar spondylosis. IMPRESSION: 1. Perisigmoid abscess with interval drain placement and improvement in the cranial portion of the ab scess contiguous with a drain and no significant change in the caudal portion of the body and the darby dder and sigmoid colon. Reviewed, dictated and finalized at location F. ETTE DEALER IMPRESSION: 1. Perisigmoid abscess with interval drain placement and improvement in the ice scraper nial portion of the abscess contiguous with a drain and no significant change i n the caudal portion of the body and the bladder and sigmoid colon.
== END 2022-01-22 14:11 | disposition home or self-care (01) ==
PROVIDERS: PCP Family Medicine; Visit Provider Surgery
DX: K57.20 Diverticulitis of large intestine with perforation and abscess without bleeding (principal)
CPT/HCPCS: 74176

== ENCOUNTER 2022-02-11 11:08 | Day surgery (SDC) | payer MEDICARE, SELFPAY ==
[2021-11-18 09:11] VITALS: BMI 31.1
[2022-02-11 11:12] VITALS: BMI 28.9
[2022-02-11 11:35] VITALS: BP 151/103; PULSE 82; RESP 16; TEMP 36.8; O2SAT 99
--- NOTE | 2022-02-11 11:48 | WPDANESEPPF ---
Anes - Initial Pre Proc Eval Procedure: Operation Date: 02/11/22 11:30 Proposed Procedures p Screening Colonoscopy - Kenn Ybarra MD Date/Time: 02/11/22 11:48 Surgeon: Kenn Ybarra MD Pre Op Diagnosis: Neoplasm Screening Patient Data Age: 71 Gender: F Height: 1.59 m Weight: 73 kg Allergies Allergy/AdvReac Type Severity Reaction Status Date / Time erythromycin base Allergy Unknown Vomiting Verified 02/11/22 11:11 Home Medications Medication Instructions Recorded Confirmed Type levothyroxine 88 mcg tablet 88 mcg PO DAILY #90 tabs 09/28/21 02/11/22 Rx omeprazole 20 mg capsule,delayed 20 mg PO DAILY #90 caps 09/28/21 02/11/22 Rx release Patient hx anesthesia problems: none Family hx anesthesia problems: none Results Review: All pre-operative results and documents have been reviewed as part of the pre-operative evaluation. [facility] Past Medical History Medical History Diverticulitis of both large and small intestine with abscess Dyslipidemia Hypothyroidism Influenza B December 2021 Melanoma (~1993) left leg calf Nose fracture Numerous skin moles Osteomyelitis (~1965) Osteopenia Surgical History Surgical History H/O abdominoplasty (~2011) History of carpal tunnel surgery (~1995) Right History of hysterectomy (~1994) History of melanoma excision (~1995) Right lower extremity Hx of section (~1981) Family History Family History Sibling Patient's brother is in good health Mother Family history of arthritis Family history of glaucoma Father Family history of amyotrophic lateral sclerosis, Onset Age: 86 Patient's father is Family history of dementia Other Diabetes mellitus Family history of malignant neoplasm of bone Family history of throat cancer Hypertension Social History Social History Smoking status: Never smoker Second hand tobacco smoke exposure: No Alcohol intake: never Drinks per week: 1 Alcohol use details: consumes 4oz of wine rarely Substance use: never Substance use type: does not use Lack of Transportation: No Lack of Food: Never True Current Housing: I Have Housing Concerned About Future Housing: No Difficulty Paying Gas/Electric Bills: No Difficulty Paying for Meds: No Currently Unemployed: No Education: Decline to Answer Difficulty w/ Childcare or Family Care: No Living arrangements: with family Additional living arrangements comments: and mother Gender identity (if verbalized by the patient): Female Sexual Orientation (if Verbalized by the Patient): Straight or Heterosexual Spiritual care concerns: No Agree to blood products: Yes Anes - Eval Final PreProcedure Day of Procedure 02/11/22 11:48 Patient weight: overweight Heart: regular rate and rhythm Lungs: clear to auscultation Airway: Mallampati scale class II Neurological: alert and oriented Last oral intake: >/= 8 hours ASA classification: II Emergent: no Anesthetic plan: proceed Anesthesia type and monitoring: general GIVS and standard monitoring Results Review: All pre-operative results and documents have been reviewed as part of the pre-operative evaluation. Informed Consent: The patient's anesthetic plan and its attendant risks and benefits were discussed with the patient/family/POA. Questions were solicited and answers provided to the satisfaction of the patient/family/POA.
--- NOTE | 2022-02-11 11:57 | PM.HPGS ---
History of Present Illness History of Present Illness Consent: Risks, benefits, and alternatives have been discussed and questions answered. Patient agrees to proceed with procedure. Chief complaint: Neoplasm Screening Narrative: Desiree Hanna is a 71 year old female who was hospitalized a couple weeks ago with acute diverticulitis.? She was found to have an abscess which was drained percutaneously by Radiology.? Subsequently, she? underwent follow-up CT abd/pelvis on 01/22/22 that showed perisigmoid abscess with interval drain placement and improvement in the cranial portion of the abscess contiguous with a drain and no significant change in the caudal portion of the body and the bladder and sigmoid colon. Review of Systems Review of Systems: All systems reviewed & are unremarkable except as noted in HPI and below PMFSH Past Medical History Medical History Diverticulitis of both large and small intestine with abscess Dyslipidemia Hypothyroidism Influenza B December 2021 Melanoma (~1993) left leg calf Nose fracture Numerous skin moles Osteomyelitis (~1965) Osteopenia Surgical History Surgical History H/O abdominoplasty (~2011) History of carpal tunnel surgery (~1995) Right History of hysterectomy (~1994) History of melanoma excision (~1995) Right lower extremity Hx of section (~1981) Family History Family History Sibling Patient's brother is in good health Mother Family history of arthritis Family history of glaucoma Father Family history of amyotrophic lateral sclerosis, Onset Age: 86 Patient's father is Family history of dementia Other Diabetes mellitus Family history of malignant neoplasm of bone Family history of throat cancer Hypertension Social History Social History Smoking status: Never smoker Second hand tobacco smoke exposure: No Alcohol intake: never Drinks per week: 1 Alcohol use details: consumes 4oz of wine rarely Substance use: never Substance use type: does not use Lack of Transportation: No Lack of Food: Never True Current Housing: I Have Housing Concerned About Future Housing: No Difficulty Paying Gas/Electric Bills: No Difficulty Paying for Meds: No Currently Unemployed: No Education: Decline to Answer Difficulty w/ Childcare or Family Care: No Living arrangements: with family Additional living arrangements comments: and mother Gender identity (if verbalized by the patient): Female Sexual Orientation (if Verbalized by the Patient): Straight or Heterosexual Spiritual care concerns: No Agree to blood products: Yes Meds Home Medications and Allergies Home Medications Medication Instructions Recorded Confirmed Type levothyroxine 88 mcg tablet 88 mcg PO DAILY #90 tabs 09/28/21 02/11/22 Rx omeprazole 20 mg capsule,delayed 20 mg PO DAILY #90 caps 09/28/21 02/11/22 Rx release Allergies Allergy/AdvReac Type Severity Reaction Status Date / Time erythromycin base Allergy Unknown Vomiting Verified 02/11/22 11:11 Exam Const: General: alert Orientation/consciousness: patient oriented x3 Resp: Auscultation: clear to auscultation bilaterally Cardio: Rhythm: regular rhythm GI: GI Palp: Yes Soft to palpation and No Tenderness to palpation present (GI) Neuro: General: patient oriented x3 Assessment and Plan Assessment and plan (1) Diverticulitis of intestine with abscess: Code(s): K57.80 - Diverticulitis of intestine, part unspecified, with perforation and abscess without bleeding Status: Acute Assessment and Plan: Colonoscopy with possible biopsy or polypectomy or cautery or injection of substances.
[2022-02-11] MEDS: LACTATED RINGERS 1,000 ML 150 ML IV CONT (12:13)
[2022-02-11 12:34] VITALS: BP 92/64; PULSE 77; RESP 15; O2SAT 95
--- NOTE | 2022-02-11 12:44 | WPDANESPN ---
Anes - Prog Note Post-Op Date/Time: 02/11/22 12:44 Cardiovascular status: normal Respiratory status: normal Airway patency: baseline Mental status: baseline Post-Op hydration status: normal Vital Signs: Last Vital Signs Temp 36.8 C 02/11/22 11:35 Pulse 77 02/11/22 12:34 Resp 15 02/11/22 12:34 BP 92/64 L 02/11/22 12:34 Pulse Ox 95 02/11/22 12:34 O2 Del Method Room Air 02/11/22 12:34 Pain Score (VAS): 0 I/O: Intake & Output 02/10/22 02/11/22 02/11/22 23:59 07:59 15:59 Intake Total 200 Balance 200 Patient Feedback: Patient satisfied with anesthetic care.
[2022-02-11 12:47] VITALS: BP 108/62; PULSE 69; RESP 14; O2SAT 99
[2022-02-11 13:05] VITALS: BP 113/66; PULSE 65; RESP 15; O2SAT 100
== END 2022-02-11 13:25 | disposition home or self-care (01) ==
PROVIDERS: PCP Family Medicine; Visit Provider Internal Medicine Gastroenterology
PROC: 0DJD8ZZ Inspection of Lower Intestinal Tract, Via Natural or Artificial Opening Endoscopic (ICD-10-PCS; CPT 45378; principal; 2022-02-11 11:30)
DX: K57.80 Diverticulitis of intestine, part unspecified, with perforation and abscess without bleeding (principal)
CPT/HCPCS: 45378

== ENCOUNTER 2022-02-19 19:46 | Outpatient (NON) | payer MEDICARE, SELFPAY | END 2022-02-19 19:47 | disposition home or self-care (01) | LOC: ANHLAB 19:48 | PROVIDERS: PCP Family Medicine; Visit Provider Nurse Practitioner | DX: R31.9 Hematuria, unspecified (principal) | CPT/HCPCS: 87086; 87088 ==

== ENCOUNTER → 2022-03-12 12:42 | Outpatient (CLI) | payer MEDICARE, SELFPAY ==
--- NOTE | ~2022-03-12 | CT_ITS ---
EXAMINATION: CT abdomen pelvis wo/w con DATE: 03/12/2022 13:47 INDICATION: Microhematuria TECHNIQUE: Computed tomography (CT) of the abdomen and pelvis was performed without and with 130 cc O mnipaque 350 intravenous contrast. The dose-length product was 1518.05 mGy-cm. Automated exposure con trol and iterative reconstruction technique were employed. COMPARISON: CT dated 01/22/2022 FINDINGS: There is dependent atelectasis. No significant pleural or pericardial effusion. Heart size is normal. There is a hiatal hernia. No pneumothorax. No renal/ureteral stones or hydronephrosis. The re are small subcentimeter hypodensities of the kidneys, most likely benign. Fatty infiltration of the liver. The spleen, pancreas, adrenal glands are unremarkable. Gallbladder i s present. Nonobstructive bowel gas pattern. There is improved thickening of the sigmoid colon with d iminished surrounding pericolonic phlegmonous change, consistent with resolving diverticulitis. No ab scess identified on the current study. There is gas in the bladder lumen, likely recent instrumentation. The sigmoid colon abuts the bladder with likely reactive change in the bladder wall. No free air or free fluid. There is mild scoliosis. Mild lumbar spondylosis. IMPRESSION: 1. Sigmoid diverticulitis with improving wall thickening and surrounding inflammation. No evidence fo r residual abscess. 2: Gas present in the bladder lumen non dependently, likely from recent instrumentation. Reviewed, dictated and finalized at location A. OGRAPHIC PRINTING PRESS OPERATOR IMPRESSION: 1. Sigmoid diverticulitis with improving wall thickening and surrounding inflam mation. No evidence for residual abscess. 2: Gas present in the bladder lumen non dependently, likely from recent instrum entation.
--- NOTE | ~2022-03-12 | XR_ITS ---
XR abdomen/kub 1V 03/12/2022 13:46 INDICATION: Microhematuria TECHNIQUE: KUB COMPARISON: CT dated 01/22/2022 FINDINGS: Bowel gas pattern is normal. Moderate colonic fecal loading. There is no evidence of free a ir, mass, organomegaly, ascites or obstruction. No abnormal calculi are seen. There surgical changes in the pelvis. The bones appear intact. There is scoliosis. IMPRESSION: 1: No acute abdominal abnormality identified. Reviewed, dictated and finalized at location A. E RN BSN
[2022-03-12 13:17] LABS: Estimated Glomerular Filt Rate 49
== END ==
PROVIDERS: PCP Family Medicine; Visit Provider Nurse Practitioner Adult Health
DX: R31.29 Other microscopic hematuria (principal); K57.92 Diverticulitis of intestine, part unspecified, without perforation or abscess without bleeding
CPT/HCPCS: 74018; 74178; Q9967

== ENCOUNTER 2022-03-24 13:59 | Outpatient (CLI) | payer MEDICARE, SELFPAY ==
--- NOTE | 2022-03-24 14:57 | ECG_ITS ---
Measurements Intervals [place] Rate: 68 P: 42 MI: 158 QRS: -37 QRSD: 93 T: 52 QT: 430 QTc: 460 Interpretive Statements SINUS RHYTHM WITH SINUS ARRHYTHMIA LEFT AXIS DEVIATION LOW QRS VOLTAGE IN PRECORDIAL LEADS POOR R WAVE PROGRESSION, ANTERIOR LEADS BASELINE ARTIFACT- I, II, III, AVR, AVL, AVF BORDERLINE ECG NO PREVIOUS ECG AVAILABLE FOR COMPARISON Electronically Signed On 03-24-2022 15:21:46 FUEL DOCK ATTENDANT by Jimmie Morejon D.O.
[2022-03-24 15:24] LABS: Hematocrit 38.2 % (37.0-47.0); Hemoglobin 12.6 g/dL (12.0-15.0)
== END 2022-03-24 14:00 | disposition home or self-care (01) ==
PROVIDERS: Anesthesiology; PCP Family Medicine; Visit Provider Surgery
DX: N32.1 Vesicointestinal fistula (principal)
CPT/HCPCS: 36415; 85014; 85018; 86850; 86900; 86901; 93005

== ENCOUNTER 2022-03-29 11:02 | Inpatient (IN) | payer MEDICARE, SELFPAY ==
[2022-03-24 14:14] VITALS: BP 127/71; PULSE 73; RESP 13; TEMP 37.1; O2SAT 98
--- NOTE | 2022-03-24 14:38 | PC.NURSE ---
Addendum entered by Clover Caceres RN 03/24/22 15:03: [facility] SHOWER DAY BEFORE SURGERY AND MORNING OF SURGERY. DRINK ENSURE BUNDLE. INSTRUCTIONS ON INSIDE SALES COORDINATOR GIVEN. PT RELAYS UNDERSTANDING. Original Note: Report to the Outpatient Waiting Room, entrance under the green pavilion located off [facility], at time __6:00AM on date _03/29/22 . Planned Procedure Time: __7:30AM . Time changes happen often and if your time is changed the preop area will call you the afternoon before. - You and your visitor will be asked to self-screen and do not enter if you have any COVID symptoms. - Only one visitor is requested with a max of two and NO children visitors are allowed at this time. - The patient visitor may be requested to leave or wait in car when not with patient due to distancing restrictions. - A mask is optional within the hospital. Patients may have clear liquids (water, carbonated beverages, clear teas, apple juice) until 3 hours prior to surgery with a maximum of 20 ounces. - No food from midnight until time of surgery Take the following medications with a SIP of water the morning of surgery: ____LEVOTHYROXINE (FINISH ALL ANTIBIOTICS) Medications to discontinue per physician NONE Date to take last dose Please no make-up, nail serbian, hairspray, perfume, deodorant, or body powder the day of surgery. No jewelry (including any body piercings) or valuables the day of surgery, leave them at home. Please take a shower or bath the night before, or the morning of, surgery with an antibacterial soap. Wear comfortable, loose fitting clothing. Children are encouraged to wear pajamas. - Jewelry must be removed prior to entering the operating room. Rings and piercings that are not removed may be cut off. - The hospital will not accept responsibility for valuables. - Please leave all valuables, including medications, at home the day of surgery. If you are going home after surgery, a licensed recycle driver must drive you home. - NO public transportation without another adult if you receive anesthesia. - We recommend that an adult stay with you for 24 hours following discharge. - We also recommend that you do not drive, make important decision, drink alcoholic beverages, or take any drugs that were not prescribed by your health care provider for at least 24 hours after your discharge time. Follow any additional instructions given to you from your surgeon. If you or anyone in your household have experienced Covid symptoms in the past week, please notify your surgeon or the nurse liaison at the phone number below for possible testing. Telephone instructions given to __PATIENT__and asked if any additional questions and then verbalized understanding. Patient advised to call surgeon office or pre surgery nurse liaison [phone] if any additional questions.
--- NOTE | 2022-03-26 14:41 | WPDANESEPPF ---
Anes - Initial Pre Proc Eval Procedure: Operation Date: 03/29/22 07:30 Proposed Procedures p Hand Assisted Laparoscopic Sigmoid Colectomy, - Faiza Dominguez MD s Stent Placement for Abdominal Surgery - Thor Siddiqi MD Date/Time: 03/26/22 14:41 Surgeon: Faiza Dominguez MD Pre Op Diagnosis: Diverticulitis with Abscess Colovesicle Fistula Patient Data Age: 71 Gender: F Height: 1.57 m Weight: 74.6 kg Last Vital Signs Temp 98.8 F 03/24/22 14:14 Pulse 73 03/24/22 14:14 Resp 13 03/24/22 14:14 BP 127/71 03/24/22 14:14 Pulse Ox 98 03/24/22 14:14 O2 Del Method Room Air 03/24/22 14:14 Allergies Allergy/AdvReac Type Severity Reaction Status Date / Time erythromycin base AdvReac Unknown Vomiting/NA Verified 03/29/22 06:18 USEA Home Medications Medication Instructions Recorded Confirmed Type levothyroxine 88 mcg tablet 88 mcg PO DAILY #90 tabs 09/28/21 03/29/22 Rx ciprofloxacin HCl 500 mg tablet 500 mg PO Q12H #14 tabs 02/19/22 03/29/22 Rx omeprazole 20 mg capsule,delayed 20 mg PO DAILY #90 caps 03/09/22 03/29/22 Rx release metronidazole 500 mg tablet 500 mg PO TID 03/22/22 03/29/22 History polyethylene glycol 3350 17 gram 17 g PO DAILY PRN Constipation 03/24/22 03/29/22 History oral powder packet (Miralax) Patient hx anesthesia problems: none Family hx anesthesia problems: none Results Review: All pre-operative results and documents have been reviewed as part of the pre-operative evaluation. [facility] Past Medical History Medical History Diverticulitis of both large and small intestine with abscess Dyslipidemia Hypothyroidism Influenza B December 2021 Melanoma (~1993) left leg calf Nose fracture Numerous skin moles Osteomyelitis (~1965) Osteopenia Surgical History Surgical History H/O abdominoplasty (~2011) History of carpal tunnel surgery (~1995) Right History of hysterectomy (~1994) History of melanoma excision (~1995) Right lower extremity Hx of section (~1981) Family History Family History Sibling Patient's brother is in good health Mother Family history of arthritis Family history of glaucoma Father Family history of amyotrophic lateral sclerosis, Onset Age: 86 Patient's father is Family history of dementia Other Diabetes mellitus Family history of malignant neoplasm of bone Family history of throat cancer Hypertension Social History Social History Smoking status: Never smoker Second hand tobacco smoke exposure: No Alcohol intake: current Drinks per week: 1 Alcohol use details: consumes 4oz of wine rarely Substance use: never Substance use type: does not use Lack of Transportation: No Lack of Food: Never True Current Housing: I Have Housing Concerned About Future Housing: No Difficulty Paying Gas/Electric Bills: No Difficulty Paying for Meds: No Currently Unemployed: No Education: Decline to Answer Difficulty w/ Childcare or Family Care: No Living arrangements: with family Additional living arrangements comments: [employer] Occupation/Education: retired Gender identity (if verbalized by the patient): Female Sexual Orientation (if Verbalized by the Patient): Straight or Heterosexual Spiritual care concerns: No Agree to blood products: Yes Anes - Eval Final PreProcedure Day of Procedure 03/26/22 14:41 Patient weight: obese Heart: regular rate and rhythm Lungs: clear to auscultation Airway: Mallampati scale class II Neurological: alert and oriented Last oral intake: >/= 8 hours ASA classification: III Emergent: no Anesthetic plan: proceed Anesthesia type and monitoring: general ETT and standard monitoring Results Review:
[2022-03-29] VITALS (11 sets, daily range): BP systolic 105–144; BP diastolic 58–67; PULSE 50–96; RESP 12–20; TEMP 35.9–36.9; O2SAT 96–100
[2022-03-29] MEDS: ACETAMINOPHEN 500 MG TABLET 1000 MG PO (06:21)
[2022-03-29] MEDS: LACTATED RINGERS 1,000 ML 30 ML IV CONT ×2 (06:35→10:10)
[2022-03-29] MEDS: KETOROLAC 15 MG/ML VIAL (*BKC) IV PUSH (06:38)
--- NOTE | 2022-03-29 07:13 | WPDURCON ---
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 She has since been found to have a diverticular abscess with probable colovesical fistula. Dr. Dominguez has a colon resection today and asked that we be present for cystoscopy with bilateral ureteral catheterization. Review of Systems Cardiovascular: Cardiovascular: Denies chest pain, Denies lightheadedness, Denies palpitations and Denies dyspnea Respiratory: Respiratory: Denies dyspnea Gastrointestinal: Gastrointestinal: Denies diarrhea, Denies nausea and Denies vomiting Genitourinary: Genitourinary: Denies hematuria and Denies dysuria Endocrine: Endocrine: Denies palpitations PMFSH Past Medical History Medical History Diverticulitis of both large and small intestine with abscess Dyslipidemia Hypothyroidism Influenza B December 2021 Melanoma (~1993) left leg calf Nose fracture Numerous skin moles Osteomyelitis (~1965) Osteopenia Surgical History Surgical History H/O abdominoplasty (~2011) History of carpal tunnel surgery (~1995) Right History of hysterectomy (~1994) History of melanoma excision (~1995) Right lower extremity Hx of section (~1981) Family History Family History Sibling Patient's brother is in good health Mother Family history of arthritis Family history of glaucoma Father Family history of amyotrophic lateral sclerosis, Onset Age: 86 Patient's father is Family history of dementia Other Diabetes mellitus Family history of malignant neoplasm of bone Family history of throat cancer Hypertension Social History Social History Smoking status: Never smoker Second hand tobacco smoke exposure: No Alcohol intake: current Drinks per week: 1 Alcohol use details: consumes 4oz of wine rarely Substance use: never Substance use type: does not use Lack of Transportation: No Lack of Food: Never True Current Housing: I Have Housing Concerned About Future Housing: No Difficulty Paying Gas/Electric Bills: No Difficulty Paying for Meds: No Currently Unemployed: No Education: Decline to Answer Difficulty w/ Childcare or Family Care: No Living arrangements: with family Additional living arrangements comments: [employer] Occupation/Education: retired Gender identity (if verbalized by the patient): Female Sexual Orientation (if Verbalized by the Patient): Straight or Heterosexual Spiritual care concerns: No Agree to blood products: Yes Meds Home Medications and Allergies Home Medications Medication Instructions Recorded Confirmed Type levothyroxine 88 mcg tablet 88 mcg PO DAILY #90 tabs 09/28/21 03/29/22 Rx ciprofloxacin HCl 500 mg tablet 500 mg PO Q12H #14 tabs 02/19/22 03/29/22 Rx omeprazole 20 mg capsule,delayed 20 mg PO DAILY #90 caps 03/09/22 03/29/22 Rx release metronidazole 500 mg tablet 500 mg PO TID 03/22/22 03/29/22 History polyethylene glycol 3350 17 gram 17 g PO DAILY PRN Constipation 03/24/22 03/29/22 History oral powder packet (Miralax) Allergies Allergy/AdvReac Type Severity Reaction Stat
--- NOTE | 2022-03-29 07:15 | WPDHPUPDATE1 ---
History and Physical Update Update Date/Time: 03/29/22 07:15 History and Physical has been reviewed, including an updated exam of the patient. There are NO changes in the patient's condition. Risks, benefits, and alternatives have been discussed and questions answered. Patient agrees to proceed with procedure.
[2022-03-29] MEDS: ceFAZolin 2 GM/D5W 50 ML 2 GM/50 ML BAG IVPB (07:31)
[2022-03-29] MEDS: metroNIDAZOLE 500 MG/ISO 100ML 500 MG/100 ML BAG 100 MG IVPB (07:50)
--- NOTE | 2022-03-29 08:01 | W.PM.PROC2 ---
Procedure Note - Detailed Date of Procedure 03/29/22 Pre-op Diagnosis Diverticulitis with Abscess Colovesicle Fistula Post-op Diagnosis Same Procedure Performed Cystoscopy with bilateral ureteral catheterization Surgeon Thor Siddiqi MD Anesthesia General Description of Procedure Patient is in the operative suite where she was prepped and draped in routine sterile fashion while in dorsal lithotomy position after the uneventful induction of a general anesthetic. Cystoscopy is undertaken with 21 F rigid cystoscope. Bladder neck and urethra endoscopically normal. She has an area of hyperemia in the dome of the bladder, just to the left of midline, consistent with her colovesical fistula. She has a single orthotopic ureteral orifice bilaterally. Five F whistle-tip catheters were advanced without difficulty and secured to a [address] Dominguez is available for the remainder of this procedure. Drains Yes Pathology None sent Complications No immediate complications
[2022-03-29] MEDS: BUPIVACAINE/EPINEPHRINE 0.5% 30 ML VIAL INFILTRATE (08:20)
--- NOTE | 2022-03-29 09:59 | W.PM.PROC2 ---
Procedure Note - Detailed Date of Procedure 03/29/22 Pre-op Diagnosis Diverticulitis with Abscess, Colovesicle Fistula Post-op Diagnosis Same Procedure Performed hand assisted laparoscopic sigmoid colectomy with mobilization of the splenic flexure, takedown of colovesicle fistula Surgeon Faiza Dominguez MD Anesthesia General Indications 71-year-old female presenting initially with perforated diverticulitis and abscess, colovesical fistula. Treated conservatively and diverticulitis resolved with antibiotics and perc drain. Patient with persistent colovesical fistula and chronic urinary tract infections. Findings Colovesical fistula, area in distal sigmoid with extreme inflammation Description of Procedure The patient was taken to the operating room and placed in the modified lithotomy position. After adequate induction of general anesthesia, the patient was prepped and draped in the normal sterile fashion. A time-out was then done to verify the patient's identity, as well as the procedure being performed. Of note, urology had previously placed bilateral urethral stents. Please see their full operative note for details of that procedure. I began by making a hand port incision around the umbilicus. This incision was carried down into the peritoneal cavity and no adhesions were noted. At this point, the hand port was placed and the abdomen was insufflated. I then placed a trocar through this site and under direct visualization placed a 5 mm and 12 mm ports in the right lower abdomen. There were some adhesions of the small bowel to the pelvis and these were taken down with the LigaSure device. I was then able to sweep the small bowel out of the operative field. I then identified the area of extreme inflammation in the distal sigmoid colon. This was noted to be in the distal sigmoid approximately 25 cm from the anal verge. I then mobilized the proximal colon to gain adequate length for our anastomosis. I took down the white line of Toldt laterally along the sigmoid and descending colon. In order to insure adequate length I went ahead and mobilized the splenic flexure as well. I then began dissection of the sigmoid colon itself. I used a medial to lateral approach 1st identifying the left colic vessels. The left colic vessels were identified at the base the mesentery. I was able to visualize and palpate the left ureter at this point as well and this was noted to be posterior and out of the way. I then took down the left colic vessels using the LigaSure device. I then carried this dissection plane inferiorly to the level of the distal sigmoid upper rectum. I then dissected laterally by taking down the white line of Toldt in this area. I then took down the area of the colovesicle fistula. No obvious defect was note in the bladder upon taking this area down. There was no obvious leakage of urine. I then dissected around the area of the distal sigmoid and upper rectum. I was then able to get around circumferentially in the distal sigmoid upper rectal area. I then transected the distal sigmoid with upper rectum using a echelon stapler. Of note this did take 2 staple loads. At this point I was able to extracorporealyze the specimen. I then found an area proximal to the inflammed area that was noted to be unremarkable and free of gross diverticular disease in the proximal sigmoid colon. This was then transected with an echelon stapler. I then prepared the proximal colon for our colorectal anastomosis. Using the EEA sizers, it was noted a 28 EEA stapler would be used for the anastomosis. I then used a auto pursestring device after transecting the proximal colon and placing the 28 anvil in the proximal colon. We then reinsufflated the abdomen and noted adequate length of the proximal colon for our anastomosis. The rectum was then dilated 1st digitally then with the EEA sizers. Once adequately done, the 28 EEA stapler was placed through the rectum an
--- NOTE | 2022-03-29 11:29 | ADMGEN ---
This patient, Desiree Hanna, was admitted to 3 [facility] Surg Room 304-02. Patient/family oriented to hospital policies and general routines including ID bracelet, bed and alarms, visiting hours, pain management, procedures, bathroom and other care routines, personal items, smoking policy, room service/diet, and visiting hours. Information on how to activate the Rapid Response Team has been discussed. Patient/Family are encouraged to report perceived risks to care and to ask questions if they do not understand what they are told or what they should do.
[2022-03-29] MEDS: KETOROLAC 30 MG/ML VIAL (*BKC) IV PUSH (13:26)
[2022-03-29] MEDS: LACTATED RINGERS 1,000 ML 100 ML IV CONT (13:29)
[2022-03-29] MEDS: HYDROcodone/acetaminophen (*CRX) 5-325 MG TABLET 1 TAB PO (16:34)
[2022-03-29] MEDS: ONDANSETRON INJ 4 MG/2 ML VIAL IV PUSH ×2 (17:25→20:41)
[2022-03-29] MEDS: HYDROcodone/acetaminophen (*CRX) 10-325 MG TABLET 1 TAB PO (20:37)
[2022-03-30] VITALS (7 sets, daily range): BP systolic 107–125; BP diastolic 39–66; PULSE 73–96; RESP 14–18; TEMP 36.5–38.6; O2SAT 93–98
[2022-03-30] MEDS: LACTATED RINGERS 1,000 ML 100 ML IV CONT (01:27)
[2022-03-30] MEDS: HYDROcodone/acetaminophen (*CRX) 10-325 MG TABLET 1 TAB PO ×2 (01:28→06:31)
[2022-03-30] MEDS: ONDANSETRON INJ 4 MG/2 ML VIAL IV PUSH ×2 (01:28→06:31)
[2022-03-30] MEDS: LEVOTHYROXINE SODIUM 88 MCG TABLET PO (06:31)
[2022-03-30 06:41] LABS: Basophils Percent Auto 0.4 % (0.2-1.2); Eosinophils Percent Auto 0.4 % (0-4.4); Hematocrit 33.9 % (37.0-47.0); Hemoglobin 11.2 g/dL (12.0-15.0); Immature Granulocyte Absolute 0.06 K/mm3 (0.00-0.031); Immature Granulocyte Percent A 0.6 % (0-0.5); Lymphocytes Percent Auto 10.7 % (18.3-44.2); Mean Corpuscular Volume 87.8 fl (80-100); Mean Platelet Volume 9.4 fl (7.4-10.4); Monocytes Absolute Auto 0.7 K/mm3 (0.1-0.6); Monocytes Percent Auto 6.6 % (2.6-8.5); Neutrophils Absolute Auto 8.3 K/mm3 (1.3-6.7); Neutrophils Percent Auto 81.3 % (45.5-73.1); Platelet Count Result 295 k/mm3 (150-375); Red Blood Count 3.86 M/mm3 (4.2-5.4); Red Cell Distribution Width 15.3 % (11.5-14.5); White Blood Count 10.3 K/mm3 (4.5-10.0)
[2022-03-30 06:45] LABS: Anion Gap 2 mmol/L (8-16); Blood Urea Nitrogen 9 mg/dL (7-17); Calcium 7.9 mg/dL (8.4-10.2); Carbon Dioxide 27 mmol/L (22-30); Chloride 99 mmol/L (98-107); Estimated CRCL calculation 48 ml/min; Estimated Glomerular Filt Rate > 60; Glucose 115 mg/dL (65-110); Potassium 4.1 mmol/L (3.4-5.0); Sodium 128 mmol/L (137-145)
--- NOTE | 2022-03-30 09:24 | WPDANESPN ---
Anes - Prog Note Post-Op Date/Time: 03/30/22 09:24 Cardiovascular status: normal Respiratory status: normal Airway patency: baseline Mental status: baseline Post-Op hydration status: normal Vital Signs: Last Vital Signs Temp 36.5 C 03/30/22 04:47 Pulse 92 03/30/22 04:47 Resp 16 03/30/22 04:47 BP 110/40 L 03/30/22 04:47 Pulse Ox 95 03/30/22 04:47 O2 Del Method Room Air 03/29/22 20:00 O2 Flow Rate 10 03/29/22 10:15 Pain Score (VAS): 04/16 I/O: Intake & Output 03/29/22 03/30/22 03/30/22 23:59 07:59 15:59 Intake Total 1490 250 Output Total 1000 850 Balance 490 -600 Laboratory Tests 03/30/22 06:09 03/30/22 06:09 03/30/22 03/30/22 06:09 06:09 WBC 10.3 H RBC 3.86 L Hgb 11.2 L Hct 33.9 L MCV 87.8 MCH 29.0 MCHC 33.0 RDW 15.3 H Plt Count 295 MPV 9.4 Immature Gran % (Auto) 0.6 H Neut % (Auto) 81.3 H Lymph % (Auto) 10.7 L [place] % (Auto) 6.6 Eos % (Auto) 0.4 Baso % (Auto) 0.4 Lymph # (Auto) 1.10 [place] # (Auto) 0.7 H Eos # (Auto) 0.0 Baso # (Auto) 0.0 Abs Immat Gran (auto) 0.06 H Absolute Neuts (auto) 8.3 H Absolute Nucleated RBC 0.0 Nucleated RBC % 0.0 Sodium 128 L Potassium 4.1 Chloride 99 Carbon Dioxide 27 Anion Gap 2 L BUN 9 Creatinine 0.90 Estim Creat Clear Calc 48 Estimated GFR > 60 Glucose 115 H Calcium 7.9 L Post-procedural complaints: none Patient Feedback: Patient satisfied with anesthetic care.
[2022-03-30] MEDS: PANTOPRAZOLE 40 MG TABLET PO ×2 (09:28→20:44)
[2022-03-30] MEDS: ENOXAPARIN 40 MG/0.4 ML SYRINGE SUB-Q (09:28)
--- NOTE | 2022-03-30 13:50 | PM.PNGS ---
Progress Note: A&P Assessment and Plan (1) Diverticulitis of intestine with abscess: Code(s): K57.80 - Diverticulitis of intestine, part unspecified, with perforation and abscess without bleeding Status: Acute Assessment and Plan: doing well, cont routine postop care, slowly ADAT, OOB/IS (2) Colovesical fistula: Code(s): N32.1 - Vesicointestinal fistula Status: Acute Assessment and Plan: cont soto, plan cystogram in 1 wk, cont Cipro Subjective Subjective Date/Time Seen: 03/30/22 13:50 feels good, emerson clears, +BM yesterday, +flatus Review of Systems Review of Systems: All systems reviewed & are unremarkable except as noted in HPI and below Exam Const: General: cooperative, comfortable and no acute distress Resp: Auscultation: clear to auscultation bilaterally Cardio: Rate: regular rate Rhythm: regular rhythm GI: Inspection: normal to inspection, distended and incision GI Palp: Yes abdominal tenderness, Yes Soft to palpation, Yes Tenderness to palpation present (GI), No Guarding due to palpation present (GI) and No Rigid due to palpation Other: incisions C/D/I Objective Data Vital Signs Vital Signs: Vital Signs - 24 hr 03/29/22 16:47 03/29/22 20:00 03/29/22 20:47 Temperature 36.9 C 36.2 C L Pulse Rate 89 96 Respiratory Rate 16 16 Blood Pressure 144/65 H 105/63 Pulse Oximetry 99 96 Oxygen Delivery Room Air 03/30/22 00:47 03/30/22 04:47 03/30/22 10:38 Temperature 37.0 C 36.5 C 36.8 C Pulse Rate 90 92 73 Respiratory Rate 14 16 18 Blood Pressure 113/43 L 110/40 L 107/66 Pulse Oximetry 97 95 98 Oxygen Delivery Intake/Output Intake/Output: Intake & Output 03/27/22 03/28/22 03/29/22 03/30/22 23:59 23:59 23:59 23:59 Intake Total 1940 1980 Output Total 1000 850 Balance 940 1130 Meds/Results Medications: Active Medications Generic Name Dose Route Start Last Admin Trade Name Freq PRN Reason Stop Dose Admin Hydrocodone Bitart/Acetaminophen 1 tab 03/29/22 11:02 03/29/22 16:34 Hydrocodone/Acetaminophen (*Crx) 5-325 Mg Tablet PO 1 tab Q4H PRN Administration Pain Rated 4-6 Hydrocodone Bitart/Acetaminophen 1 tab 03/29/22 17:09 03/30/22 06:31 Hydrocodone/Acetaminophen (*Crx) 10-325 Mg Tablet PO 1 tab Q4H PRN Administration Pain Rated 7-10 Alvimopan 12 mg 03/30/22 21:00 Alvimopan 12 Mg Capsule PO 04/06/22 09:01 Q12HR MILLA Ciprofloxacin 500 mg 03/30/22 13:30 Ciprofloxacin 500 Mg Tab PO Q12HR MILLA Enoxaparin Sodium 40 mg 03/30/22 09:00 03/30/22 09:28 Enoxaparin 40 Mg/0.4 Ml Syringe SUB-Q 40 mg DAILY MILLA Administration Lactated Ringer's 1,000 mls @ 100 mls/hr 03/29/22 11:02 03/30/22 01:27 Lr - Lactated Ringers Iv IV CONT 100 mls/hr .Q10H MILLA Administration Ketorolac Tromethamine 30 mg 03/29/22 11:02 03/29/22 13:26 Ketorolac 30 Mg/Ml Vial (*Bkc) IV PUSH 04/03/22 11:01 30 mg Q6H PRN Administration Pain Rated 4-6 Levothyroxine Sodium 88 mcg 03/30/22 06:30 03/30/22 06:31 Levothyroxine Sodium 88 Mcg Tablet PO 88 mcg DAILY@0630 [facility] Administration Morphine Sulfate 2 mg 03/29/22 11:02 Morphine Sulfate (*Crx) 2 Mg/Ml Inj IV PUSH Q2H PRN Pain Rated 4-6 Morphine Sulfate 4 mg 03/29/22 11:02 Morphine Sulfate (*Crx) 4 Mg/Ml Inj IV PUSH Q2H PRN Pain Rated 7-10 Naloxone HCl 0.1 mg 03/29/22 11:02 Naloxone Hcl 0.4 Mg/Ml Vial IV PUSH Q2M PRN Opiate Reversal Ondansetron HCl 4 mg 03/29/22 11:02 03/30/22 06:31 Ondansetron Inj 4 Mg/2 Ml Vial IV PUSH 4 mg Q4H PRN Administration Nausea And Vomiting Pantoprazole Sodium 40 mg 03/30/22 09:00 03/30/22 09:28 Pantoprazole 40 Mg Tablet PO 40 mg QAM MILLA Administration Labs Labs: Laboratory Results - last 24 hr 03/30/22 03/30/22 06:09 06:09 WBC 10.3 H RBC 3.86 L Hgb 11.2 L Hct 33.9 L MCV 87.8 MCH 29.0 MCHC
[2022-03-30] MEDS: CIPROFLOXACIN 500 MG TAB PO (20:44)
[2022-03-30] MEDS: ALVIMOPAN 12 MG CAPSULE PO (20:45)
[2022-03-30] MEDS: ACETAMINOPHEN 325 MG TABLET 650 MG PO (22:07)
[2022-03-31 00:30] VITALS: TEMP 38.5
[2022-03-31] MEDS: LEVOTHYROXINE SODIUM 88 MCG TABLET PO (05:56)
[2022-03-31 06:00] VITALS: BP 100/87; PULSE 83; RESP 14; TEMP 36.8; O2SAT 96
[2022-03-31] MEDS: CIPROFLOXACIN 500 MG TAB PO (09:25)
[2022-03-31] MEDS: PANTOPRAZOLE 40 MG TABLET PO (09:25)
[2022-03-31] MEDS: ALVIMOPAN 12 MG CAPSULE PO (09:25)
[2022-03-31] MEDS: ENOXAPARIN 40 MG/0.4 ML SYRINGE SUB-Q (09:25)
--- NOTE | 2022-03-31 12:52 | PM.DS ---
DS: Admitting Diagnosis Discharge Date 03/31/2022 Admitting Diagnosis Diverticulitis with abscess, colovesical fistula DS: Discharge Diagnosis Discharge Diagnosis (1) Diverticulitis of intestine with abscess: Code(s): K57.80 - Diverticulitis of intestine, part unspecified, with perforation and abscess without bleeding Status: Acute Assessment and Plan: status post sigmoid colectomy, doing well, continue routine postoperative care, home with p.o. analgesia and Colace, follow-up 2 weeks (2) Colovesical fistula: Code(s): N32.1 - Vesicointestinal fistula Status: Acute Assessment and Plan: see above, continue Soto, plan for cystogram on Sunday 04/02 DS: Summary Hospital Course Reason for hospitalization: diverticulitis with abscess, colovesical fistula Hospital Course: The patient is a 71-year-old female presenting with diverticulitis with abscess and colovesical fistula. The patient had been previously admitted and percutaneous drainage was done for the abscess. The patient has diverticulitis and abscess subsequently resolved, but continued with chronic UTI. Patient presented for sigmoid colectomy on 03/29, please see full operative report for details of that procedure. Postoperatively the patient did well was transferred to the surgical floor. The patient was tolerating a clear liquid diet and had a bowel movement on both postoperative day 0 and postoperative day 1. . The patient reports her pain is well controlled with p.o. analgesia and she has been up and ambulating without difficulty. Her exam is completely benign and her incisions look to be healing well. She will be discharged with the Soto catheter as per urology recommendations with cystogram on 04/02. Status at Discharge Functional status at discharge: independent ambulation Overall status at discharge: patient is progressing back to baseline Time Spent with Patient Time attestation: Total time spent providing and/or coordinating discharge services: Time spent: Less than 30 minutes Exam Const: General: cooperative, comfortable and no acute distress Resp: Auscultation: clear to auscultation bilaterally Cardio: Rate: regular rate Rhythm: regular rhythm GI: Inspection: normal to inspection, distended and incision GI Palp: Yes abdominal tenderness, Yes Soft to palpation, Yes Tenderness to palpation present (GI), No Guarding due to palpation present (GI) and No Rigid due to palpation DS: Data Data Completed and Pending Completed studies during hospitalization: Pending at discharge 03/29/22 09:39 Surgical [PTH] Routine Discharge Plan Discharge Attending physician on discharge: Faiza Dominguez Discharging Clinician: Faiza Dominguez Anticipated Discharge Date/Time: 03/31/22 14:00 Patient Disposition: Home, Self-Care Activity: may shower and no straining Diet: as tolerated Wound Care Instructions: incision open to air Discharge Instructions: Continue soto catheter, Cystogram on Sunday 04/02 Patient Instructions: Antibiotic Form, Soto Catheter Placement and Care (DC), Urinary Leg Bag (GEN), Colectomy (DC), How to Change a Catheter Drainage Bag (DC) Stand Alone Forms: General Discharge Information Follow-up/Referrals: Faiza Dominguez MD [Physician] - 2 Weeks Thor Siddiqi MD [Physician] - Keep Reg. Scheduled Appt. (Cystogram Sunday 04/02) Discharge Medications: New hydrocodone-acetaminophen 5-325 mg tablet 1 tablet PO Q6H PRN (Reason: pain) Qty: 30 0RF docusate sodium [Colace] 100 mg capsule 100 mg PO BID Qty: 30 0RF Continued levothyroxine 88 mcg tablet 88 mcg PO DAILY Qty: 90 3RF omeprazole 20 mg capsule,delayed release(DR/EC) 20 mg PO DAILY Qty: 90 1RF Discontinued polyethylene glycol 3350 [Miralax] 17 gram Powder In Packet 17 g PO DAILY PRN (Reason: Constipation) Date of admission: 03/29/22 11:02 Primary Care Provider: Felicity Squires
== END 2022-03-31 14:30 | disposition home or self-care (01) | DRG 982 ==
LOC: ANH3MEDSUR 11:06
PROVIDERS: Urology; Admitting Provider Surgery; PCP Family Medicine; Visit Provider Surgery
PROC: 0D1E4Z4 Bypass Large Intestine to Cutaneous, Percutaneous Endoscopic Approach (ICD-10-PCS; principal; 2022-03-29 07:30)
PROC: 0T9B80Z Drainage of Bladder with Drainage Device, Via Natural or Artificial Opening Endoscopic (ICD-10-PCS; 2022-03-29 07:30)
DX: N32.1 Vesicointestinal fistula (principal); K57.20 Diverticulitis of large intestine with perforation and abscess without bleeding; E78.5 Hyperlipidemia, unspecified; E03.9 Hypothyroidism, unspecified; M85.80 Other specified disorders of bone density and structure, unspecified site; Z85.820 Personal history of malignant melanoma of skin; Z90.710 Acquired absence of both cervix and uterus; Z28.21 Immunization not carried out because of patient refusal
CPT/HCPCS: 36415; 80048; 85025; 88307; A9270; C1729; C1758; C1769; J0330; J0690; J1650; J1885; J2250; J2405; J2704; J2710; J3010; J7030; J7120

== ENCOUNTER 2022-04-02 10:55 | Outpatient (CLI) | payer MEDICARE, SELFPAY ==
--- NOTE | ~2022-04-02 | XR_ITS ---
EXAMINATION: XR cystogram DATE: 04/02/2022 11:28 INDICATION: Vesicointestinal fistula. TECHNIQUE: Water-soluble contrast was gravity-infused through the patient's Cervantes catheter. Multiple fluoroscopic images were obtained. Fluoroscopy exposure time was 0.3 minutes. The total number of aminta ges was 8. COMPARISON: CT abdomen and pelvis 03/12/2022 FINDINGS: There is no extraluminal leakage of contrast. No fistula. No ureteral reflux. Bowel staple lines are noted. IMPRESSION: 1. No extraluminal leakage of contrast. Reviewed, dictated and finalized at location A. [employer] PRACTICAL NURSE
== END 2022-04-02 10:56 | disposition home or self-care (01) ==
PROVIDERS: PCP Family Medicine; Visit Provider Surgery
DX: N32.1 Vesicointestinal fistula (principal)
CPT/HCPCS: 51600; 74430; Q9967

== ENCOUNTER 2022-11-11 09:36 | Day surgery (SDC) | payer MEDICARE, SELFPAY ==
[2022-10-27 09:21] VITALS: BMI 31.0
--- NOTE | 2022-11-10 12:33 | PM.HPGS ---
History of Present Illness History of Present Illness Consent: Risks, benefits, and alternatives have been discussed and questions answered. Patient agrees to proceed with procedure. Chief complaint: Diverticulitis LRG Intestine w/o Perf or Abscess Narrative: Desiree Hanna is a 72 year old female who has history of diverticulitis. She also had repair of a colovesicular fistula several months ago, along with resection of the sigmoid colon. Attempted colonoscopy last year could not be done because of the stenosis in his sigmoid. Review of Systems Review of Systems: All systems reviewed & are unremarkable except as noted in HPI and below PMFSH Past Medical History Medical History Colovesical fistula (~03/2022) Diverticulitis of both large and small intestine with abscess (~03/2022) Dyslipidemia Hypothyroidism Influenza B December 2021 Melanoma (~1993) left leg calf Nose fracture Numerous skin moles Osteomyelitis (~1965) Osteopenia Surgical History Surgical History H/O abdominoplasty (~2011) History of carpal tunnel surgery (~1995) Right History of hysterectomy (~1994) History of melanoma excision (~1995) Right lower extremity Hx of section (~1981) S/P laparoscopic-assisted sigmoidectomy (~03/2022) hand assisted laparoscopic sigmoid colectomy with mobilization of the splenic flexure, takedown of colovesicle fistula 03/29/22 Family History Family History Sibling Patient's brother is in good health Mother Family history of arthritis Family history of glaucoma Father Family history of amyotrophic lateral sclerosis, Onset Age: 86 Patient's father is Family history of dementia Other Diabetes mellitus Family history of malignant neoplasm of bone Family history of throat cancer Hypertension Social History Social History Smoking status: Never smoker Second hand tobacco smoke exposure: No Alcohol intake: current Drinks per week: 0 Alcohol use details: 1 PER MONTH Substance use: never Substance use type: does not use Lack of Transportation: No Lack of Food: Never True Current Housing: I Have Housing Concerned About Future Housing: No Difficulty Paying Gas/Electric Bills: No Difficulty Paying for Meds: No Currently Unemployed: No Education: Bachelor's Degree Difficulty w/ Childcare or Family Care: No Living arrangements: with family Additional living arrangements comments: [employer] Occupation/Education: retired Gender identity (if verbalized by the patient): Female Sexual Orientation (if Verbalized by the Patient): Straight or Heterosexual Spiritual care concerns: No Agree to blood products: Yes Meds Home Medications and Allergies Home Medications Medication Instructions Recorded Confirmed Type polyethylene glycol 3350 17 17 g PO DAILY PRN constipation 04/21/22 11/11/22 History gram/dose oral powder (Miralax) rosuvastatin 20 mg tablet 20 mg PO QHS #90 tabs 05/13/22 11/11/22 Rx levothyroxine 88 mcg tablet 88 mcg PO DAILY #90 tabs 09/13/22 11/11/22 Rx omeprazole 20 mg capsule,delayed 20 mg PO DAILY #90 caps 09/13/22 11/11/22 Rx release diphenhydramine HCl 25 mg capsule 25 mg PO TID PRN allergies 10/27/22 11/11/22 History (Benadryl) Allergies Allergy/AdvReac Type Severity Reaction Status Date / Time erythromycin base AdvReac Unknown Vomiting/NA Verified 10/27/22 09:19 USEA Exam Const: General: alert Orientation/consciousness: patient oriented x3 Resp: Auscultation: clear to auscultation bilaterally Cardio: Rhythm: regular rhythm GI: GI Palp: Yes Soft to palpation and No Tenderness to palpation present (GI) Neuro: General: patient oriented x3 Assessment and Plan Assessment and plan
--- NOTE | 2022-11-11 07:28 | WPDANESEPPF ---
Anes - Initial Pre Proc Eval Procedure: Operation Date: 11/11/22 11:30 Proposed Procedures p Diagnostic Colonoscopy - Kenn Ybarra MD Date/Time: 11/11/22 07:28 Surgeon: Kenn Ybarra MD Pre Op Diagnosis: Diverticulitis LRG Intestine w/o Perf or Abscess Patient Data Age: 72 Gender: F Height: 1.57 m Weight: 77 kg Allergies Allergy/AdvReac Type Severity Reaction Status Date / Time erythromycin base AdvReac Unknown Vomiting/NA Verified 10/27/22 09:19 USEA Home Medications Medication Instructions Recorded Confirmed Type polyethylene glycol 3350 17 17 g PO DAILY PRN constipation 04/21/22 11/11/22 History gram/dose oral powder (Miralax) rosuvastatin 20 mg tablet 20 mg PO QHS #90 tabs 05/13/22 11/11/22 Rx levothyroxine 88 mcg tablet 88 mcg PO DAILY #90 tabs 09/13/22 11/11/22 Rx omeprazole 20 mg capsule,delayed 20 mg PO DAILY #90 caps 09/13/22 11/11/22 Rx release diphenhydramine HCl 25 mg capsule 25 mg PO TID PRN allergies 10/27/22 11/11/22 History (Benadryl) Patient hx anesthesia problems: none Family hx anesthesia problems: none Results Review: All pre-operative results and documents have been reviewed as part of the pre-operative evaluation. [facility] Past Medical History Medical History Colovesical fistula (~03/2022) Diverticulitis of both large and small intestine with abscess (~03/2022) Dyslipidemia Hypothyroidism Influenza B December 2021 Melanoma (~1993) left leg calf Nose fracture Numerous skin moles Osteomyelitis (~1965) Osteopenia Surgical History Surgical History H/O abdominoplasty (~2011) History of carpal tunnel surgery (~1995) Right History of hysterectomy (~1994) History of melanoma excision (~1995) Right lower extremity Hx of section (~1981) S/P laparoscopic-assisted sigmoidectomy (~03/2022) hand assisted laparoscopic sigmoid colectomy with mobilization of the splenic flexure, takedown of colovesicle fistula 03/29/22 Family History Family History Sibling Patient's brother is in good health Mother Family history of arthritis Family history of glaucoma Father Family history of amyotrophic lateral sclerosis, Onset Age: 86 Patient's father is Family history of dementia Other Diabetes mellitus Family history of malignant neoplasm of bone Family history of throat cancer Hypertension Social History Social History Smoking status: Never smoker Second hand tobacco smoke exposure: No Alcohol intake: current Drinks per week: 0 Alcohol use details: 1 PER MONTH Substance use: never Substance use type: does not use Lack of Transportation: No Lack of Food: Never True Current Housing: I Have Housing Concerned About Future Housing: No Difficulty Paying Gas/Electric Bills: No Difficulty Paying for Meds: No Currently Unemployed: No Education: Bachelor's Degree Difficulty w/ Childcare or Family Care: No Living arrangements: with family Additional living arrangements comments: [employer] Occupation/Education: retired Gender identity (if verbalized by the patient): Female Sexual Orientation (if Verbalized by the Patient): Straight or Heterosexual Spiritual care concerns: No Agree to blood products: Yes Anes - Eval Final PreProcedure Day of Procedure 11/11/22 07:28 Patient weight: obese Heart: regular rate and rhythm Lungs: clear to auscultation Airway: Mallampati scale class II Neurological: alert and oriented Last oral intake: >/= 8 hours ASA classification: III Emergent: no Anesthetic plan: proceed Anesthesia type and monitoring: general GIVS and standard monitoring Results Review: All pre-operative results and documents have been reviewed as part of the pre-oper
[2022-11-11 10:18] VITALS: BP 134/87; PULSE 62; RESP 16; TEMP 37.1; O2SAT 99
[2022-11-11] MEDS: LACTATED RINGERS 1,000 ML 150 ML IV CONT (10:27)
[2022-11-11 11:52] VITALS: BP 104/65; PULSE 76; RESP 16; O2SAT 97
[2022-11-11 12:02] VITALS: BP 110/61; PULSE 51; RESP 15; O2SAT 98
[2022-11-11 12:12] VITALS: BP 112/65; PULSE 52; RESP 16; O2SAT 97
--- NOTE | 2022-11-11 13:08 | WPDANESPN ---
Anes - Prog Note Post-Op Date/Time: 11/11/22 13:08 Cardiovascular status: normal Respiratory status: normal Airway patency: baseline Mental status: baseline Post-Op hydration status: normal Vital Signs: Last Vital Signs Temp 37.1 C 11/11/22 10:18 Pulse 52 L 11/11/22 12:12 Resp 16 11/11/22 12:12 BP 112/65 11/11/22 12:12 Pulse Ox 97 11/11/22 12:12 O2 Del Method Room Air 11/11/22 12:12 Pain Score (VAS): 0 I/O: Intake & Output 11/10/22 11/11/22 11/11/22 23:59 07:59 15:59 Intake Total 500 Balance 500 Post-procedural complaints: none Patient Feedback: Patient satisfied with anesthetic care. Other Findings: Patient vital signs back to baseline. Patient denies nausea and vomiting. Patient's pain under control. Patient OK for discharge.
== END 2022-11-11 12:26 | disposition home or self-care (01) ==
PROVIDERS: PCP Family Medicine; Visit Provider Internal Medicine Gastroenterology
PROC: 0DJD8ZZ Inspection of Lower Intestinal Tract, Via Natural or Artificial Opening Endoscopic (ICD-10-PCS; CPT 45378; principal; 2022-11-11 11:30)
DX: Z12.11 Encounter for screening for malignant neoplasm of colon (principal); K63.89 Other specified diseases of intestine; K64.8 Other hemorrhoids
CPT/HCPCS: 45378

== ENCOUNTER → 2023-04-09 08:28 | Outpatient (CLI) | payer MEDICARE, SELFPAY ==
--- NOTE | ~2023-04-09 | MM_ITS ---
EXAMINATION: MM screening [facility] BI w pablito HISTORY: Screening mammogram TECHNIQUE: Craniocaudal and mediolateral oblique 3-D tomosynthesis images were obtained and synthetic 2-D images were generated. CAD analysis was submitted and interpreted. COMPARISON: 12/10/2021, 01/17/2020, 12/08/2017 BREAST PARENCHYMAL COMPOSITION: There are scattered areas of fibroglandular density. FINDINGS: No suspicious mass, calcification, or architectural distortion are identified in either sabino ast to suggest malignancy. There has been no suspicious interval change. IMPRESSION: 1. No mammographic evidence of malignancy. 2. Recommend routine screening mammography in one year. BI-RADS Category 1: Negative Reviewed, dictated and finalized at location A. [employer]
== END ==
PROVIDERS: PCP Family Medicine; Visit Provider Family Medicine
DX: Z12.31 Encounter for screening mammogram for malignant neoplasm of breast (principal)
CPT/HCPCS: 77063; 77067

== ENCOUNTER 2023-05-26 12:32 | Outpatient (CLI) | payer MEDICARE, SELFPAY ==
--- NOTE | ~2023-05-26 | DEXA_ITS ---
Bone Density Report Name: HANNA MOORE Age: 72 Sex: Female Ethnicity: White Date of : 1950 Indication: osteopenia; height loss; hysterectomy;postmenopausal Referring Provider: Felicity Squires Study: Bone densitometry was performed. Exam Date: May 26, 2023 Accession number: [id number] Bone Density: Region BMD T-score Z-score Classification AP Spine (L1-L4) 0.899 -1.3 0.9 Osteopenia Femoral Neck (Left) 0.766 -0.7 1.1 Normal Total Hip (Left) 0.802 -1.1 0.4 Osteopenia Femoral Neck (Right) 0.785 -0.6 1.3 Normal Total Hip (Right) 0.882 -0.5 1.1 Normal Total Hip Mean 0.842 -0.8 0.8 Normal World Health Organization criteria for BMD impression classify patients as: Normal (T-score at or above -1.0), Osteopenia (T-score between -1.0 and -2.5), or Osteoporosis (T-score at or below -2.5). 10-year Fracture Risk(1): Major Osteoporotic Fracture 8.3% Hip Fracture 0.8% Reported Risk Factors: [place] (), Neck BMD=0.766, BMI=31.2 (1) FRAX(R) Version 3.08. Fracture probability calculated for an untreated patient. Fracture probability may be lower if the patient has received treatment. Previous Exams: Region Exam Age BMD T-score BMD Change BMD Change Date g/cm2 vs Baseline vs Previous AP Spine(L1-L4) 05/26/2023 72 0.899 -1.3 -0.084* -0.009 01/17/2020 69 0.908 -1.3 -0.075* -0.075* 07/20/2005 54 0.983 -0.6 Total Hip(Left) 05/26/2023 72 0.802 -1.1 -0.194* -0.007 01/17/2020 69 0.809 -1.1 -0.187* -0.187* 07/20/2005 54 0.997 0.4 Total Hip(Right) 05/26/2023 72 0.882 -0.5 -0.085* 0.004 01/17/2020 69 0.879 -0.5 -0.089* -0.089* 07/20/2005 54 0.968 0.2 *Denotes significance at 95% confidence level, LSC for AP Spine = 0.022 g/cm2, LSC for Total Hip = 0.027 g/cm2 Clinical Information Provided by Patient: Has used the following medications: Vitamin D, Calcium, LEVOTHYROXIN Has the following medical conditions: Hysterectomy Patient maximum height was 62.5 Menopause Age: 44 No regular weight bearing exercise Does not regularly consume dairy products Drinks caffeinated beverages Onset of menses at age 15 Number of children 2 Impression: The patient has low bone mass, based on the Total Spine T-score. The patient has an estimated ten-year risk of hip fracture of 0.8% and an estimated ten-year risk of major
== END 2023-05-26 12:33 ==
LOC: MICIMG 12:33
PROVIDERS: PCP Family Medicine; Visit Provider Family Medicine
DX: Z78.0 Asymptomatic menopausal state (principal); M85.88 Other specified disorders of bone density and structure, other site
CPT/HCPCS: 77080

== ENCOUNTER 2023-10-12 09:02 | Outpatient (CLI) | payer MEDICARE, SELFPAY ==
[2023-10-12 12:39] LABS: Basophils Absolute Auto 0.1 K/mm3 (0.0-0.1); Basophils Percent Auto 0.8 % (0.2-1.2); Eosinophils Absolute Auto 0.2 K/mm3 (0-0.3); Eosinophils Percent Auto 2.9 % (0-4.4); Hematocrit 44.2 % (37.0-47.0); Hemoglobin 14.4 g/dL (12.0-15.0); Immature Granulocyte Absolute 0.05 K/mm3 (0.00-0.031); Immature Granulocyte Percent A 0.8 % (0-0.5); Lymphocytes Absolute Auto 1.78 K/mm3 (0.9-3.2); Mean Corpuscular HGB Conc 32.6 g/dl (32-36); Mean Corpuscular Hemoglobin 30.7 pg (26-34); Mean Corpuscular Volume 94.2 fl (80-100); Mean Platelet Volume 10.2 fl (7.4-10.4); Monocytes Absolute Auto 0.6 K/mm3 (0.1-0.6); Monocytes Percent Auto 9.1 % (2.6-8.5); Neutrophils Absolute Auto 3.9 K/mm3 (1.3-6.7); Neutrophils Percent Auto 59.4 % (45.5-73.1); Platelet Count Result 285 k/mm3 (150-375); Red Blood Count 4.69 M/mm3 (4.2-5.4); Red Cell Distribution Width 13.4 % (11.5-14.5); White Blood Count 6.6 K/mm3 (4.5-10.0)
[2023-10-12 13:26] LABS: Alanine Aminotransferase 26 U/L (6-35); Albumin Level 4.3 g/dL (3.5-5.1); Alkaline Phosphatase 56 U/L (38-126); Anion Gap 11 mmol/L (4-12); Aspartate Amino Transferase 38 U/L (14-36); Bilirubin,Total 0.6 mg/dL (0.2-1.3); Blood Urea Nitrogen 21 mg/dL (7-17); Calcium 9.5 mg/dL (8.4-10.2); Carbon Dioxide 28 mmol/L (22-30); Chloride 100 mmol/L (98-107); Cholesterol 166 mg/dL (0-200); Estimated Glomerular Filt Rate > 60; Glucose 84 mg/dL (65-110); HDL Direct 86 mg/dL; Potassium 4.4 mmol/L (3.4-5.0); Sodium 139 mmol/L (137-145); Triglycerides 74 mg/dL (<150)
[2023-10-12 13:36] LABS: LDL Cholesterol Direct 56 mg/dL
[2023-10-12 15:14] LABS: Vitamin D 25 Hydroxy 57.2 ng/mL
[2023-10-12 15:37] LABS: Hemoglobin A1C 5.7 % (<5.7)
[2023-10-12 17:05] LABS: Vitamin B12 > 1000.0 pg/mL (239-931)
[2023-10-12 17:54] LABS: Free T4 Free Thyroxine Reflex 1.61 ng/dL (0.78-2.19)
[2023-10-12 19:06] LABS: Total Triiodothyronine (T3) 1.32 NG/ML (0.97-1.69)
== END 2023-10-12 09:03 | disposition home or self-care (01) ==
PROVIDERS: PCP Family Medicine; Visit Provider Family Medicine
DX: R73.9 Hyperglycemia, unspecified (principal); I10 Essential (primary) hypertension; Z79.899 Other long term (current) drug therapy; E55.9 Vitamin D deficiency, unspecified; E78.5 Hyperlipidemia, unspecified; E53.8 Deficiency of other specified B group vitamins; M85.80 Other specified disorders of bone density and structure, unspecified site
CPT/HCPCS: 36415; 80053; 80061; 82306; 82607; 83036; 84439; 84443; 84480; 85025

== ENCOUNTER 2024-04-10 10:48 | Outpatient (CLI) | payer MEDICARE, SELFPAY ==
--- NOTE | ~2024-04-10 | MM_ITS ---
EXAMINATION: MM screening [facility] BI w pablito HISTORY: Screening TECHNIQUE: Craniocaudal and mediolateral oblique 3-D tomosynthesis images were obtained and synthetic 2-D images were generated. CAD analysis was submitted and interpreted. COMPARISON: . Comparison to multiple prior studies sequentially, with oldest reviewed study dated . BREAST PARENCHYMAL COMPOSITION: Not dense: There are scattered areas of fibroglandular density. FINDINGS: There is no evidence of suspicious mass, calcification, or architectural distortion to sugg est malignancy in either breast. There has been no suspicious interval change. IMPRESSION: 1. No mammographic evidence of malignancy. 2. Recommend routine screening mammography in one year. BI-RADS Category 1: Negative Reviewed, dictated and finalized at location B. CRUSHER
== END 2024-04-10 10:49 | disposition home or self-care (01) ==
LOC: MICIMG 10:49
PROVIDERS: PCP Family Medicine; Visit Provider Family Medicine
DX: Z12.31 Encounter for screening mammogram for malignant neoplasm of breast (principal)
CPT/HCPCS: 77063; 77067

== ENCOUNTER 2024-04-16 14:18 | Outpatient (CLI) | payer MEDICARE, SELFPAY ==
--- OUTSIDE RECORDS SUMMARY | 2024-04-16 14:33 | XMS_ITS | Referral Summary ---
Author Organization [facility] Address [address] [place] [address] Care Team Providers Care Press Tender Star Signal Name Role Phone Leighton Almanza DO Primary Care Provider Source Comments [facility] [employer],non-owned Affiliates and Associated Physician Practices is amultiple site organization consisting of ambulatory clinics and hospital sitesin [place], [place], [place] and [place]. This disclosure is being madepursuant to the Care Everywhere program and may not contain all information available regarding this patient. Last updated 17.[facility] [employer] Allergies No known active allergies Active Problems Problem Noted Date Diagnosed Date Headache 10/03/2009 Overview (01/12/2015): Social History Tobacco Use Types Packs/Day Years Used Date Smoking Tobacco: Never Alcohol Use Standard Drinks/Week Comments Yes 0 (1 standard drink = 0.6 oz pur e alcohol) occasion Sex and Gender Information Value Date Recorded Sex Assigned at Not on file Gender Identity Not on file Sexual Orientation Not on file Last Filed Vital Signs Vital Sign Reading Time Taken Comments Blood Pressure 126/86 10/03/2009 3:50 PM CDT Pulse 85 10/03/2009 3:50 PM CDT Temperature 37.1 C (98.7 F) 10/03/2009 3:50 PM CDT Respiratory Rate 20 10/03/2009 3:50 PM CDT Oxygen Saturation 99% 10/03/2009 3:50 PM CDT Inhaled Oxygen Concentration - - Weight 77.1 kg (170 lb) 10/03/2009 3:50 PM CDT Height 157.5 cm (5' 2 ) 10/03/2009 3:50 PM CDT Body Mass Index 31.09 10/03/2009 3:50 PM CDT Plan of Treatment Not on file Care Teams Press Tender Star Signal Relationship Specialty Start Date End Date Leighton Almanza DO [address] [place] [id number] PCP - General 10/03/09
--- OUTSIDE RECORDS SUMMARY | 2024-04-16 14:33 | XMS_ITS | Clinical Summary ---
Author Organization [facility] Address [address] [place] [address] Care Team Providers Care Lace Roller Name Role Phone Leighton Almanza DO Primary Care Provider Source Comments [facility] [employer],non-owned Affiliates and Associated Physician Practices is amultiple site organization consisting of ambulatory clinics and hospital sitesin [place], [place], [place] and [place]. This disclosure is being madepursuant to the Care Everywhere program and may not contain all information available regarding this patient. Last updated 17.[facility] [employer] Allergies No known active allergies Active Problems [...] 10/03/2009 3:50 PM CDT Plan of Treatment Health Maintenance Due Date Last Done Comments BONE DENSITY TESTING 1950 COLOGUARD (AGES 45-75) - COL ON CA SCREENING 1950 COLON MONITORING 1950 COLONOSCOPY - COLON CA SCREENING 1950 CT COLONOGRAPHY - COLON CA SCREENING 1950 Colorectal Cancer Screening 1950 FIT - COLON CA SCREENING 1950 FLEX SIG - COLON CA SCREENING 1950 LIPID TESTING 1950 MAMMOGRAM 1950 HEPATITIS C SCREENING 10/31/1969 DTAP/TDAP/TD VACCINES (1 - Tdap) 11/04/1970 PNEUMOCOCCAL VACCINE 50+ (1 of 1 - PCV) 11/04/2001 ZOSTER VACCINE (1 of 2) 11/04/2001 COVID-19 VACCINE (1 - 2023-2 5 season) 2023 INFLUENZA VACCINE (#1) 2023 DEPRESSION SCREENING 03/07/2024 MEDICARE AWV CALENDAR YEAR 2024 Respiratory Syncytial Virus (RSV) Vaccine Pt: or over 60 yrs (1 - 1-dose 75+ series) 11/04/2026 HEPATITIS B VACCINE Aged Out No longe r eligible based on patient's age to complete this topic HIB VACCINE Aged Out No longer eligi ble based on patient's age to complete this topic HPV VACCINE Aged Out No longer eligi ble based on patient's age to complete this topic MENINGOCOCCAL (Group B) VACCINE Aged Out No longer eligible based on patient's age to complete this topic MENINGOCOCCAL VACCINE Aged Out No jamaal lizzy eligible based on patient's age to complete this topic Care Teams Lace Roller Relationship Specialty Start Date End Date Leighton Almanza DO [address] [facility] [address] [place] [address] PCP - General 10/03/09
--- OUTSIDE RECORDS SUMMARY | 2024-04-16 14:33 | XMS_ITS | Continuity of Care Document ---
Author Name [facility] Organization [facility] Care Team Providers Care Roller Man Name Role Phone [facility] Unavailable Unavailable Encounters Combined list of: 1) Encounters from [facility] Veterans Affairs facilities going backup to the last 18 months, not all [place] inpatient encounters are included; 2) Encounters from the Department of [facility] facilities going backup to 280 months. Location Location Details Encounter Type Encounter Number Reason For Visit Attending Provider ADM Date DC Date Status Disposition Source [facility] Outpatient Encounter [id number] 3 11/25 [facility] Procedures Combined list of: 1) Procedures from [facility] Affairs facilities going back up to thelast 18 months, not all [place] non-surgical procedures are included; 2) All procedures from the Department of [facility] facilities. Procedure Procedure Type Code Date Perfomer Comments Sourc e RELEASE OF CARPAL TUNNEL 11/24/1995 [facility] VAGINAL HYSTERECTOMY 10/01/1995 [facility] REPAIR OF CYSTOCELE AND RECTOCELE 10/01/1995 [facility] LAPAROSCOPY 10/01/1995 [facility] VAGINAL SUSPENSION AND FIXATION 10/01/1995 [facility] SUTURE OF LACERATION OF VULV A OR PERINEUM 10/01/1995 [facility] INTRAVENOUS PYELOGRAM 10/01/1995 [facility] DIAGNOSTIC ULTRASOUND OF URINARY SYSTEM 10/01/1995 [facility] OTHER LOCAL EXCISION OR DESTRUCTION OF LESION OR TISSUE OF SKIN AND SUBCUTANEOUS TISSUE 11/01/1994 [facility] Social History Combined list of available smoking, tobacco, and other social history from Department of Defense and Veterans Affairs facilities. Social History Type Response Date Comment Sourc e This section is an empty social history section. [facility] Advance Directives List of completed, amended, or rescinded Advance Directives on record at Department of Veterans Affairs facilities. An actual copy of the Directive is not included. Date Advance Directive Provider Source 02/08/1996 ADVANCE DIRECTIVE CLARKE [facility]
--- OUTSIDE RECORDS SUMMARY | 2024-04-16 14:33 | XMS_ITS | Patient Health Summary ---
Author Organization [facility] Address [address] [place] [address] Care Team Providers Care Ad Operations Specialist Name Role Phone Leighton Almanza DO Primary Care Provider [phone] Note from [facility],non-owned Affiliates and Associated Physician Practices is amultiple site organization consisting of ambulatory clinics and hospital sitesin [place], [place], [place] and [place]. This disclosure is being madepursuant to the Care Everywhere program and may not contain all information available regarding this patient. Last updated 17.[facility] Allergies No known active allergies Active Problems Problem Noted Date Diagnosed Date Headache 10/03/2009 Social History Tobacco Use Types Packs/Day Years [...] Mass Index 31.09 10/03/2009 3:50 PM CDT Procedures * CT HEAD WO CONTRAST(Performed 10/03/2009) Performed for Headache * COMPREHENSIVE METABOLIC PANEL(Performed 10/03/2009) * CBC W AUTO DIFFERENTIAL(Performed 10/03/2009) Results * CT HEAD - NON CONTRAST (10/03/2009 4:43 PM CDT) Anatomical Region Laterality Modality Head Computed Tomogra phy 10/03/2009 4:44 PM CDT Impressions 10/03/2009 4:45 PM CDT Normal unenhanced CT brain. Narrative 10/03/2009 4:[address] Brain Noncontrast Indication: Visual disturbances, headache Comparison: None Technique: 5 mm axial images were obtained from the foramen magnum to the vertex without administration of contrast. Findings: The ventricles and sulci are normal in size for patient's given age. There is no intracranial hemorrhage, mass, or mass-effect. No abnormal extra-axial fluid collections are seen. There is no cortical infarction. The visualized paranasal sinuses and mastoid air cells appear clear. Procedure Note Pauline Sharma MD - 10/03/2009 CT Brain Noncontrast Indication: Visual disturbances, headache Comparison: None Technique: 5 mm axial images were obtained from the foramen magnum to the vertex without administration of contrast. Findings: The ventricles and sulci are normal in size for patient's given age. There is no intracranial hemorrhage, mass, or mass-effect. No abnormal extra-axial fluid collections are seen. There is no cortical infarction. The visualized paranasal sinuses and mastoid air cells appear clear. IMPRESSION Normal unenhanced CT brain. Shon Bernardo MD CT ORDERABLES * (ABNORMAL) CBC W AUTO DIFFERENTIAL (10/03/2009 4:23 PM CDT) WBC 7.6 4.5 - 11.0 1000/mm3 [facility] RBC 4.98 4.2 - 5.4 10X6 [facility] Hemoglobin 14.8 12.0 - 16.0 gm/dl [facility] Hematocrit 40.8 36.0 - 48.0 % [facility] MCV 81.9 80.0 - 99.0 fl [facility] MCH 29.7 25.0 - 31.0 pg [facility] MCHC 36.3(H) 32.0 - 36.0 gm/dl [facility] RDW 12.8 11.5 - 14.5 % [facility] Platelet Count 311 130.0 - 400.0 1000/mm3 [facility] Granulocytes % 67.1 40.0 - 70.0 % [facility] Lymphocytes % 24.9 22.0 - 40.0 % [facility] Monocytes % 6.7 2.0 - 10.0 % [facility] Eosinophils % 0.8 0.0 - 6.0 % [facility] Basophils % 0.5 0.0 - 3.0 % [facility] Granulocytes Absolute 5.12 1.8 - 7.7 [facility] Lymphocytes Absolute 1.90 1.0 - 5.4 [facility] Monocytes Absolute 0.51 0.1 - 1.1 [facility] Eosinophils Absolute 0.06 0.0 - 0.7 [facility] Basophils Absolute 0.04 0.0 - 0.2 [facility] Comment Manual Diff Not Indicated [facility] BLOOD SPECIMEN / Unknown 10/03/2009 4:23 PM CDT 10/03/2009 4:23 PM CDT Narrative [facility] - 10/03/2009 4:30 PM CDT Obtain if headache is not typical f* Shon Bernardo MD LAB - HEMATOLOGY O RDERABLES [facility] [address] [place] [address] * (ABNORMAL) COMPREHENSIVE METABOLIC PANEL (10/03/2009 4:23 PM CDT) BUN 15 7.0 - 17.0 mg/dl [facility] Sodium 139 137 - 145 mmol/L [facility] Potassium 3.6 3.6 - 5.0 mmol/L [facility] Chloride 102 98.0 - 107.0 mmol/L [facility] Glucose 101 75 - 110 mg/dl [facility] Creatinine 1.1(H) 0.52 - 1.05 mg/dl [facility] AST 31 14.0 - 36.0 U/L [facility] Alkaline Phosphatase 90 38.0 - 126.0 U/L [facility] Calcium 9.6 8.4 - 10.2 mg/dl [facility] Bilirubin Total 0.7 0.2 - 1.3 mg/dl [facility] Albumin 4.6 3.5 - 5.0 gm/dl [facility] Protein Total 8.0 6.3 - 8.2 gm/dl [facility] CO2 24 22.0 - 30.0 mEq/L [facility] ALT 17 9.0 - 52.0 U/L [facility] eGFR by MDRD 51.20 ml/min/1.7 3m2 [facility] BLOOD SPECIMEN / Unknown 10/03/2009 4:23 PM CDT 10/03/2009 4:23 PM CDT Narrative [facility] - 10/03/2009 4:39 PM CDT Obtain if headache is not typical f* Shon Bernardo MD LAB - CHEMISTRY OR DERABLES [facility] [address] [place] [address] Care Teams Ad Operations Specialist Relationship Specialty Start Date End Date Leighton Almanza DO [address] [facility] [address] [place] [id number] PCP - General 10/03/09
--- OUTSIDE RECORDS SUMMARY | 2024-04-16 14:33 | XMS_ITS | Clinical Summary ---
Author Organization [facility] Address [address] [place] [address] Care Team Providers Care Clerk To Justice Name Role Phone Unavailable Primary Care Provider Unavailabl e Social History Tobacco Use Types Packs/Day Years Used Date Smoking Tobacco: Never Assessed Comments Unknown Sex and Gender Information Value Date Recorded Sex Assigned at Not on file Legal Sex Female 5:16 PM CDT Gender Identity Not on file Sexual Orientation Not on file Plan of Treatment Health Maintenance Due Date Last Done Comments Colorectal Cancer Screening Colonoscopy (10 Years) 1950 Hepatitis C 11/04/1969 DTaP, Tdap and Td Vaccines ( 1 - Tdap) 11/04/1970 Mammogram Screening 1991 Zoster Vaccines (1 of 2) 11/04/2001 Dexa Scan (General) 11/04/2016 Pneumococcal Vaccine: 65+ Ye ars (1 of 1 - PCV) 11/04/2016 COVID-19 Vaccine (2023-2 5 season) 2023 Influenza Adult (#1) 2023 RSV Immunization or 60+ Years (1 - 1-dose 75+ series) 11/04/2026 Meningococcal B Vaccine Aged Out No l onger eligible based on patient's age to complete this topic Meningococcal Vaccine Aged Out No jamaal lizzy eligible based on patient's age to complete this topic RSV Immunizations Under 20 Months Aged Out No longer eligible based on patient's age to complete this topic
--- OUTSIDE RECORDS SUMMARY | 2024-04-16 14:33 | XMS_ITS | Clinical Summary ---
Author Organization [facility] Address [address] [place] [phone] Phone Care Team Providers Care Sprinkler Repair Technician Name Role Phone Unavailable Primary Care Provider Unavailabl e Allergies Active Allergy Reactions Criticality Noted Date Comments Erythromycin Nausea and Vomiting Low 12/09/2012 Medications LEVOTHYROXINE 75 mcg tablet TAKE 1 TABLET (75 MCG) BY MOUTH DAILY. 90 Tablet 1 07/05/2016 Active omeprazole (PriLOSEC) 20 mg Capsule, Delayed Release(E.C.) Take 1 Capsule (20 mg) by mouth daily. 90 Capsule 1 03/18/2017 Active Active Problems Patient Care Coordination No te Formatting of this note migh t be different from the original. 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 Upper endoscopy 06/2014: short segment Villafana's esophagus. Follow up upper endoscopy 3 years. History of osteomyelitis 12/09/2012 Overview (12/09/2012): Surgery R leg around 1962 Melanoma in situ 12/09/2012 Overview (12/09/2012): locted on R lower leg in 1995 Resolved Problems Problem Noted Date Diagnosed Date Resolved Date Hypothyroidism 12/09/2012 10/14/2014 Immunizations Immunization Administration Dates Next Due INFLUENZA VACCINE QUADRIVALENT 3 YR UP PF IM Influenza Seasonal Unspecified Formulation IM Influenza Vaccine Quad Split 3+ Yrs Im 6 Influenza Vaccine Split 3+ Yrs PF IM 12/12/2013 Family History Medical History Relation Name Comments Healthy Brother 1 Healthy Brother 2 Dementia Father Other Father ALS Unknown Maternal Grandfather Heart Disease Maternal Grandmother Healthy Mother Other Mother glaucoma Cancer Paternal Grandfather bone ca ncer Relation Name Status Comments Brother 1 Alive Brother 2 Alive Father Maternal Grandfather Maternal Grandmother Mother Alive Paternal Grandfather Paternal Grandmother Social History Tobacco Use Types Packs/Day Years Used Date Smoking Tobacco: Never Smokeless Tobacco: Never Alcohol Use Standard Drinks/Week Comments Yes 0 (1 standard drink = 0.6 oz pur e alcohol) rarely Comments No Sex and Gender Information Value Date Recorded Sex Assigned at Not on file Legal Sex Female 2:27 PM CDT Gender Identity Not on file Sexual Orientation Not on file Occupation Industry Job Start Date Job End Date Not on file Not on file Not on file Not on file Last Filed Vital Signs Vital Sign Reading Time Taken Comments Blood Pressure 137/77 02/09/2016 11:57 AM CLINICAL SYSTEMS ANALYST Pulse 82 02/09/2016 11:57 AM CLINICAL SYSTEMS ANALYST Temperature 37.1 C (98.8 F) 02/09/2016 11:57 AM CLINICAL SYSTEMS ANALYST Respiratory Rate 16 02/09/2016 11:57 AM CLINICAL SYSTEMS ANALYST Oxygen Saturation 97% 02/09/2016 11:57 AM CLINICAL SYSTEMS ANALYST RA Inhaled Oxygen Concentration - - Weight 74.8 kg (165 lb) 02/09/2016 11:57 AM CLINICAL SYSTEMS ANALYST Height 157.5 cm (5' 2 ) 02/09/2016 11:57 AM CLINICAL SYSTEMS ANALYST Body Mass Index 30.18 02/09/2016 11:57 AM CLINICAL SYSTEMS ANALYST Plan of Treatment Health Maintenance Due Date Last Done Comments DTAP/TDAP/TD VACCINES (1 - Tdap) 11/04/1970 FIT-DNA Q 3 years 11/04/1996 FIT/FOBT Q 1 year 11/04/1996 Flex Sig/CT Colonography Q 5 years 11/04/1996 PNEUMOCOCCAL VACCINE 65+ YEA RS (1 of 1 - PCV) 11/04/2001 ZOSTER VACCINE (1 of 2) 11/04/2001 OSTEOPOROSIS SCREENING 11/04/2016 UPPER GI ENDOSCOPY 06/07/2017 06/07/2014, 06/07/2014 BREAST CANCER SCREENING 07/21/2017 07/22/19 17, 07/14/2015, 04/29/2014, Additional history exists COLORECTAL SCREENING 01/22/2023 01/22/2013, 01/23/20 13 Colorectal Cancer Screening 01/22/2023 INFLUENZA VACCINE (#1) 2023 6, 11/22/2014, 12/12/2013, Additional history exists RSV VACCINE (60+ or ) (1 - 1-dose 75+ series) 11/04/2026 Procedures Procedure Name Priority Date/Time Associated Diagnosis Comments MAMMO SCREEN BILAT W OR WO CAD Routine 07/21/2016 4:44 PM CDT Visit for screening mammogram from Last 3 Months or Most Recently Relevant to Health Maintenance Results * MAMMO SCREEN BILAT W OR WO CAD (07/21/2016 4:44 PM CDT) Anatomical Region Laterality Modality Breast Bilateral Mammography Narrative 07/22/2016 10:49 AM CDT Bilateral digital screening mammogram with computer assisted diagnosis History: Annual screening exam. Findings: A bilateral screening mammogram was performed. Comparison is made to : 07/14/2015, 04/29/2014, and 01/17/2014 The breast parenchyma is heterogeneously dense which can obscure small masses. No new masses, suspicious calcifications, or areas of asymmetry or distortion are identified. CAD was utilized. Impression: Negative screening mammogram. Recommendation: Routine annual follow-up Overall Assessment: Birads Category 1: Negative us Patricia Vazquez MD MAMMO ORDERABLES Final Resul t from Last 3 Months or Most Recently Relevant to Health Maintenance Insurance [employer] (INTERNAL) [facility] [employer] Advance Directives For more information, please contact: [phone] * Full Code (Latest Code Status on File) Date Activated Date Inactivated Comments 06/07/2014 8:09 AM 06/07/2014 12:02 PM * Full Code Date Activated Date Inactivated Comments 01/22/2013 8:43 AM 01/22/2013 12:17 PM
[2024-04-16 19:08] LABS: Alanine Aminotransferase 27 U/L (6-35); Albumin Level 4.2 g/dL (3.5-5.1); Alkaline Phosphatase 60 U/L (38-126); Anion Gap 9 mmol/L (4-12); Aspartate Amino Transferase 28 U/L (14-36); Bilirubin,Total 0.5 mg/dL (0.2-1.3); Blood Urea Nitrogen 32 mg/dL (7-17); Calcium 9.8 mg/dL (8.4-10.2); Carbon Dioxide 30 mmol/L (22-30); Chloride 101 mmol/L (98-107); Estimated Glomerular Filt Rate 53; Glucose 108 mg/dL (65-110); Potassium 3.6 mmol/L (3.4-5.0); Sodium 140 mmol/L (137-145)
[2024-04-16 19:18] LABS: Hemoglobin A1C 5.8 % (<5.7)
== END 2024-04-16 14:19 | disposition home or self-care (01) ==
LOC: ANHGOSHLAB 14:20
PROVIDERS: PCP Family Medicine; Visit Provider Family Medicine
DX: E03.9 Hypothyroidism, unspecified (principal); R73.9 Hyperglycemia, unspecified; Z79.899 Other long term (current) drug therapy
CPT/HCPCS: 36415; 80053; 83036; 84443

== ENCOUNTER 2024-12-21 11:18 | Outpatient (CLI) | payer MEDICARE, SELFPAY ==
--- OUTSIDE RECORDS SUMMARY | 2024-12-21 12:02 | XMS_ITS | Clinical Summary ---
Author Organization [facility] Address [address] [place] [address] Care Team Providers Care Sales Representative Graphic Art Name Role Phone Archie Leightonchanda Masterson DO Primary Care Provider Source Comments [facility],non-owned Affiliates and Associated Physician Practices is amultiple site organization consisting of ambulatory clinics and hospital sitesin [place], [place], [place] and [place]. This disclosure is being madepursuant to the Care Everywhere program and may not contain all information available regarding this patient. Last updated 17.[facility] Allergies No known active allergies Active Problems Problem Noted Date Diagnosed Date Headache 10/03/2009 Overview (01/12/2015): Social History Tobacco Use Types Packs/Day Years Used Date Smoking Tobacco: Never Alcohol Use Standard Drinks/Week Comments Yes 0 (1 standard drink = 0.6 oz pur e alcohol) occasion Comments Unknown Sex and Gender Information Value Date Recorded Sex Assigned at Not on file Legal Sex Female 9:09 AM FUNDRAISING CONSULTANT Gender Identity Not on file Sexual Orientation [...] 3:50 PM CDT Height 157.5 cm (5' 2) 10/03/2009 3:50 PM CDT Body Mass Index [...] 11/04/2001 ZOSTER VACCINE (1 of 2) 11/04/2001 DEPRESSION SCREENING 03/07/2024 COVID-19 VACCINE (1 - 2023-2 5 season) 2024 INFLUENZA VACCINE (#1) 2024 Respiratory Syncytial Virus (RSV) Vaccine Pt: [...] to complete this topic MENINGOCOCCAL (Group B) VACC INE SHARED DECISION-MAKING Aged Out No longer eligibl e based on patient's age to complete this topic MENINGOCOCCAL GROUPS A/C/Y/W VACCINE Aged Out No longer eligible b ased on patient's age to complete this topic Insurance [facility] MEDICARE [facility] MANAGED MEDICARE ADV Care Teams Sales Representative Graphic Art Relationship Specialty Start Date End Date Leihgton Almanza DO [address] [facility] [address] [place] [address] PCP - General 10/03/09
--- OUTSIDE RECORDS SUMMARY | 2024-12-21 12:02 | XMS_ITS | Clinical Summary ---
Author Organization [facility] Address [address] [place] [id number] Care Team Providers Care Pocket Operator Name Role Phone Unavailable Primary Care Provider [...] 1 - Tdap) 11/04/1970 Mammogram Screening 1991 Pneumococcal Vaccine: 50+ Ye ars (1 of 1 - PCV) 11/04/2001 Zoster Vaccines (1 of 2) 11/04/2001 Dexa Scan (General) 11/04/2016 COVID-19 Vaccine ( - 2023-2 5 season) 2024 Influenza Adult (#1) 2024 RSV Immunization or 60+ Years (1 - [...]
--- OUTSIDE RECORDS SUMMARY | 2024-12-21 12:02 | XMS_ITS | Clinical Summary ---
Author Organization [facility] Address [address] [place] [phone] Phone Care Team Providers Care Marker Machine Attendant Name Role Phone Unavailable Primary Care Provider [...] Vazquez MD Referring Provider: Patricia Vazquez MD [address] [place] [address] Other: Problem Noted Date Diagnosed Date Hypothyroidism, [...] Comments Blood Pressure 137/77 02/09/2016 11:57 AM PRINCIPAL ACCOUNT CLERK Pulse 82 02/09/2016 11:57 AM PRINCIPAL ACCOUNT CLERK Temperature 37.1 C (98.8 F) 02/09/2016 11:57 AM PRINCIPAL ACCOUNT CLERK Respiratory Rate 16 02/09/2016 11:57 AM PRINCIPAL ACCOUNT CLERK Oxygen Saturation 97% 02/09/2016 11:57 AM PRINCIPAL ACCOUNT CLERK RA Inhaled Oxygen Concentration - - Weight 74.8 kg (165 lb) 02/09/2016 11:57 AM PRINCIPAL ACCOUNT CLERK Height 157.5 cm (5' 2) 02/09/2016 11:57 AM PRINCIPAL ACCOUNT CLERK Body Mass Index 30.18 02/09/2016 11:57 AM PRINCIPAL ACCOUNT CLERK Plan of Treatment Health Maintenance Due Date Last Done Comments DTAP/TDAP/TD VACCINES (1 - Tdap) 11/04/1970 FIT-DNA Q 3 years 11/04/1996 FIT/FOBT Q 1 year 11/04/1996 Flex Sig/CT Colonography Q 5 years 11/04/1996 PNEUMOCOCCAL VACCINE 50+ YEA RS (1 of 1 - PCV) 11/04/2001 ZOSTER VACCINE (1 of 2) 11/04/2001 OSTEOPOROSIS SCREENING 11/04/2016 UPPER GI ENDOSCOPY 06/07/2017 06/07/2014, 06/07/2014 BREAST CANCER SCREENING 07/21/2017 07/22/19 17, 07/14/2015, 04/29/2014, Additional history exists COLORECTAL SCREENING 01/22/2023 01/22/2013, 01/23/20 13 Colorectal Cancer Screening 01/22/2023 INFLUENZA VACCINE (#1) 2024 6, 11/22/2014, 12/12/2013, Additional history exists RSV [...] Advance Directives For more information, please contact: [phone] * Full Code (Latest Code Status on File) Date Activated Date Inactivated Comments 06/07/2014 8:09 AM 06/07/2014 12:02 PM * Full Code Date Activated Date Inactivated Comments 01/22/2013 8:43 AM 01/22/2013 12:17 PM
[2024-12-21 12:47] LABS: Hematocrit 43.4 % (37.0-47.0); Hemoglobin 14.2 g/dL (12.0-15.0); Immature Granulocyte Percent A 0.6 % (0-0.5); Lymphocytes Absolute Auto 1.75 K/mm3 (0.9-3.2); Mean Corpuscular HGB Conc 32.7 g/dl (32-36); Mean Corpuscular Hemoglobin 30.1 pg (26-34); Mean Corpuscular Volume 91.9 fl (80-100); Nucleated Red Blood Cells Absolute Auto 0.000 K/mm3 (0.0-0.012); Nucleated Red Blood Cells Perc 0.0 % (0.0-0.2); Platelet Count Result 269 k/mm3 (150-375); Red Blood Count 4.72 M/mm3 (4.2-5.4); White Blood Count 5.1 K/mm3 (4.5-10.0)
[2024-12-21 12:57] LABS: Alanine Aminotransferase 31 U/L (6-35); Albumin Level 4.3 g/dL (3.5-5.1); Alkaline Phosphatase 68 U/L (38-126); Anion Gap 8 mmol/L (4-12); Aspartate Amino Transferase 48 U/L (14-36); Bilirubin,Total 0.6 mg/dL (0.2-1.3); Blood Urea Nitrogen 18 mg/dL (7-17); Calcium 9.8 mg/dL (8.4-10.2); Carbon Dioxide 28 mmol/L (22-30); Chloride 101 mmol/L (98-107); Cholesterol 198 mg/dL (0-200); Estimated Glomerular Filt Rate 58; Glucose 99 mg/dL (65-110); HDL Direct 82 mg/dL; Magnesium 2.3 mg/dL (1.6-2.3); Potassium 4.3 mmol/L (3.4-5.0); Sodium 137 mmol/L (137-145); Total Protein 8.0 g/dL (6.3-8.2); Triglycerides 122 mg/dL (<150)
[2024-12-21 13:26] LABS: Thyroid Stimulating Hormone Reflex 2.700 uIU/mL (0.465-4.68)
[2024-12-21 13:46] LABS: Hemoglobin A1C 5.4 % (<5.7)
[2024-12-21 15:01] LABS: Vitamin B12 753.0 pg/mL (239-931)
== END 2024-12-21 11:19 | disposition home or self-care (01) ==
LOC: ANHGOSHLAB 11:18
PROVIDERS: PCP Family Medicine; Visit Provider Nurse Practitioner Family
DX: E03.9 Hypothyroidism, unspecified (principal); E78.5 Hyperlipidemia, unspecified; R73.9 Hyperglycemia, unspecified; E55.9 Vitamin D deficiency, unspecified; Z79.899 Other long term (current) drug therapy
CPT/HCPCS: 36415; 80053; 80061; 82306; 82607; 83036; 83735; 84443; 85025